=== PATIENT | male | born 1955 | race Caucasian/White ===

== ENCOUNTER 2021-07-10 23:59 | Emergency (ER) | payer MEDICARE ==
[~2021-07-10] VITALS: Ht 177.8 cm; Wt 96.0 kg
--- NOTE | 2021-07-11 00:46 | RAD ---
Examination: CT head and cervical spine without contrast CT HEAD INDICATION: Fall, pain COMPARISON: None Available. Exposure: One or more of the following individualized dose reduction techniques were utilized for thi s examination: 1. Automated exposure control 2. Adjustment of the mA and/or kV according to patient size 3. Use of iterative reconstruction technique TECHNIQUE: 5 mm contiguous axial images were obtained from the skull base to the vertex in both bone and soft tissue algorithm. FINDINGS: No abnormal attenuation within the brain parenchyma. No evidence of acute intracranial hemorrhage. No extra-axial fluid collections. No mass effect or midline shift. Ventricular size is appropriate. Basal cisterns are patent. No fractures identified.Eckert-white differentiation is preserved.Globes and orbits are within normal l imits. Paranasal sinuses and mastoid air cells are clear. CT CERVICAL SPINE INDICATION: Fall, pain COMPARISON: None Available. Technique: 2.5 mm contiguous axial images were obtained from the skull base through the cervicothorac ic junction in both bone and soft tissue algorithm. Additional sagittal and coronal reconstructions were also performed. FINDINGS: Vertebral body height and alignment are maintained. Cervical lordosis is preserved. The l ateral masses of C1 are aligned upon C2. No fractures identified. The bony canal is patent throughout. Moderate intervertebral disc height loss identified in the cervical spine particularly at C4-C5, C5-C 6, C6-C7 with small anterior and posterior osteophyte formation. The paraspinous soft tissues are unremarkable. Visualized intracranial contents are unremarkable. L phil apices are clear. IMPRESSION: 1. No acute intracranial findings. 2. No acute fracture cervical spine. Correlate clinically. 3. Moderate degenerative changes cervical spine. Electronically signed by: Piero Colon MD (07/11/2021 12:44 AM) [id number]
[2021-07-11 00:57] LABS: BASO % 0 % (0-3); EOS % 0 % (0-3); HEMATOCRIT 34.9 % (39.0-53.0); HEMOGLOBIN 11.6 g/dL (13.0-17.5); LYMPH # 0.6 x10^3/uL (1.0-4.8); LYMPH % 12 % (24-48); MEAN CORPUSCULAR HEMOGLOBIN 29 pg (25-35); MEAN CORPUSCULAR HGB CONC 33 g/dL (31-37); MEAN CORPUSCULAR VOLUME 87 fL (79-100); MONO # 0.3 x10^3/uL (0.0-1.1); MONO % 6 % (0-9); NEUT # 4.3 x10^3/uL (1.8-7.7); NEUT % 82 % (31-73); PLATELET COUNT 141 x10^3/uL (140-400); RED BLOOD COUNT 4.03 x10^6/uL (4.30-5.70); RED CELL DISTRIBUTION WIDTH 14.8 % (11.5-14.5); WHITE BLOOD COUNT 5.2 x10^3/uL (4.0-11.0)
[2021-07-11] MEDS ORDERED: KETAMINE HCL 500 MG/10 ML VIAL. IV ONE (01:00)
[2021-07-11] MEDS ORDERED: DIPH,PERTUSS(ACELL),TET VAC/PF 0.5 ML SYRINGE. VAX IM ONE (01:00)
[2021-07-11] MEDS ORDERED: IV NORMAL SALINE 1000ML BAG 1,000 ML IV ONE ×2 (01:00→01:30)
[2021-07-11] MEDS ORDERED: HYDROmorphone 2 MG/ML VIAL IVP ONE (01:00)
[2021-07-11 01:07] LABS: CALCIUM 7.8 mg/dL (8.5-10.1); CREATININE 0.7 mg/dL (0.7-1.3); GFR 112.1; POTASSIUM 4.4 mmol/L (3.5-5.1)
--- NOTE | 2021-07-11 01:11 | RAD ---
Examination: 3 views of the left knee, 2 views of the left tibia and fibula, 3 views of the left ankl e, 2 views of the left foot HISTORY: History of fall, ankle pain COMPARISON: Available FINDINGS: The alignment of the knee joint grossly appears unremarkable. Small knee joint effusion. There is mil d lateral displaced fracture of the lateral malleolus. There is lateral subluxation/dislocation of th e talus in the ankle joint with widening of the medial clear space. Moderate soft tissue swelling stan[place] ntified lateral to lateral malleolus. Mild hallux valgus. The alignment of the tarsal bones, tarsomet atarsal joints, metatarsophalangeal, interphalangeal grossly appears unremarkable. IMPRESSION: Mild lateral displaced fracture of the lateral malleolus with lateral subluxation/dislocation of the talus in the ankle joint with widening of the medial clear space. Moderate soft tissue swelling later al to lateral malleolus. Electronically signed by: Piero Colon MD (07/11/2021 1:09 AM) [id number]
[2021-07-11 01:13] LABS: ALBUMIN 3.6 g/dL (3.4-5.0); ALBUMIN/GLOBULIN RATIO 1.3 (1.0-1.7); TOTAL BILIRUBIN 0.3 mg/dL (0.2-1.0); TOTAL PROTEIN 6.4 g/dL (6.4-8.2)
--- NOTE | 2021-07-11 01:39 | PHYS DOC ---
Past Medical History Past Surgical History: No Surgical History General Adult EDM: Chief Complaint: ANKLE PROBLEM HPI: HPI: 66-year-old male who initially denies any past medical history, resents the ED with complaints of left ankle pain stating he rolled his ankle just prior to arrival. is later present at bedside, (patient consents to his/her/their knowledge and involvement in pts' medical care), and states she heard a loud noise and found patient on the floor. Patient reports he did not hit his head or lose consciousness. States "I tried to walk on it and couldn't." Has a history of bilateral hip placements, gastric bypass surgery in 2003 and reports he has sweating and dizzy spells, worse at night for the past 4 years. Does drink alcohol daily, 1 bottle of wine a day. Reports he was currently drinking alcohol earlier tonight. No prior injury to his left ankle. Denies any head injury or loss of consciousness. Is not on any anticoagulants. Takes no routine daily prescribed medications. Denies any other coingestants. Cannot recall last tetanus. Review of Systems: Review of Systems: Constitutional: Denies fever or chills. [] Eyes: Denies change in visual acuity. [] HENT: Denies nasal congestion or sore throat. [] Respiratory: Denies cough or shortness of breath. [] Cardiovascular: Denies chest pain or edema. [] GI: Denies abdominal pain, nausea, vomiting, bloody stools or diarrhea. [] : Denies incontinence or saddle anesthesia Musculoskeletal: Denies mildline back pain or flank pain. [] Integument: Denies rash or diaphoresis Neurologic: Denies headache, focal weakness or sensory changes. [] Endocrine: Denies polyuria or polydipsia. [] Lymphatic: Denies swollen glands. [] Psychiatric: Denies depression or anxiety. [] Heart Score: C/O Chest Pain: No Risk Factors: Risk Factors: DM, Current or recent (<one month) smoker, HTN, HLP, family history of CAD, obesity. Risk Scores: Score 0 - 3: 2.5% MACE over next 6 weeks - Discharge Home Score 4 - 6: 20.3% MACE over next 6 weeks - Admit for Clinical Observation Score 7 - 10: 72.7% MACE over next 6 weeks - Early Invasive Strategies Current Medications: Current Medications Medications (Trade) Dose Ordered Sig/Obdulia Start Time Stop Time Status Last Admin Dose Admin Diphtheria/ Tetanus/Acell Pertussis (ADACEL TDap SYRINGE) 0.5 ml ONCE ONCE 07/11/21 01:00 07/11/21 01:01 DC 07/11/21 00:54 0.5 ML Hydromorphone HCl (Dilaudid) 1 mg 1X ONCE 07/11/21 01:00 07/11/21 01:01 DC 07/11/21 00:52 1 MG Ketamine HCl (Ketamine) 120 mg 1X ONCE 07/11/21 01:00 07/11/21 01:01 DC 07/11/21 00:54 120 MG Sodium Chloride 1,000 ml @ 1,000 mls/hr 1X ONCE 07/11/21 01:30 07/11/21 02:29 07/11/21 01:26 1,000 MLS/HR Allergies: Allergies: Allergies Coded Allergies Type Severity Reaction Last Updated Verified No Known Drug Allergies 07/11/21 No Physical Exam: PE: Constitutional: Well developed, well nourished, no acute distress, non-toxic appearance. HENT: Normocephalic, atraumatic, moist mucous membranes Eyes: PERRLA, EOMI, conjunctiva normal, no discharge. Neck: Normal range of motion, supple, no midline neck pain Cardiovascular: S1/2 present, regular rhythm Lungs & Thorax: Speaking in full sentences, bilateral equal chest rise, no tachypnea or increased work of breathing Abdomen: soft, no tenderness, Skin: Warm, dry, no erythema, no rash. [] Back: No midline spinal step-offs or tenderness, no CVA tenderness. [] Extremities: Complains of left ankle pain with weightbearing, no pain in either knee or fibular head but both anterior knees have superficial abrasions, left ankle with obvious deformity/significant contusions over medial malleoli w/skin tenting and superficial skin abrasion, dp/pt intact bl, L5/S1 intact bl, cap refill < 1 second, patient moves left ankle/knee hip without any grimace Neurologic: Alert and oriented X 3, normal motor function, normal sensory function, no focal deficits noted, ataxic movements Psychologic: Affect normal, judgement normal, mood normal. [] Current Patient Data: Labs: Laboratory Tests Test 07/11/21 00:40 White Blood Count 5.2 x10^3/uL (4.0-11.0) Red Blood Count 4.03 x10^6/uL (4.30-5.70) L Hemoglobin 11.6 g/dL (13.0-17.5) L Hematocrit 34.9 % (39.0-53.0) L Mean Corpuscular Volume 87 fL (79-100) Mean Corpuscular Hemoglobin 29 pg (25-35) Mean Corpuscular Hemoglobin Concent 33 g/dL (31-37) Red Cell Distribution Width 14.8 % (11.5-14.5) H Platelet Count 141 x10^3/uL (140-400) Neutrophils (%) (Auto) 82 % (31-73) H Lymphocytes (%) (Auto) 12 % (24-48) L Monocytes (%) (Auto) 6 % (0-9) Eosinophils (%) (Auto) 0 % (0-3) Basophils (%) (Auto) 0 % (0-3) Neutrophils # (Auto) 4.3 x10^3/uL (1.8-7.7) Lymphocytes # (Auto) 0.6 x10^3/uL (1.0-4.8) L Monocytes # (Auto) 0.3 x10^3/uL (0.0-1.1) Eosinophils # (Auto) 0.0 x10^3/uL (0.0-0.7) Basophils # (Auto) 0.0 x10^3/uL (0.0-0.2) Sodium Level 136 mmol/L (136-145) Potassium Level 4.4 mmol/L (3.5-5.1) Chloride Level 100 mmol/L (98-107) Carbon Dioxide Level 24 mmol/L (21-32) Anion Gap 12 (6-14) Blood Urea Nitrogen 9 mg/dL (8-26) Creatinine 0.7 mg/dL (0.7-1.3) Estimated GFR (Cockcroft-Gault) 112.1 BUN/Creatinine Ratio 13 (6-20) Glucose Level 105 mg/dL (70-99) H Calcium Level 7.8 mg/dL (8.5-10.1) L Total Bilirubin 0.3 mg/dL (0.2-1.0) Aspartate Amino Transferase (AST) 28 U/L (15-37) Alanine Aminotransferase (ALT) 31 U/L (16-63) Alkaline Phosphatase 41 U/L (46-116) L Total Protein 6.4 g/dL (6.4-8.2) Albumin 3.6 g/dL (3.4-5.0) Albumin/Globulin Ratio 1.3 (1.0-1.7) Ethyl Alcohol Level 241 mg/dL (0-10) H Laboratory Tests 07/11/21 00:40 Laboratory Tests 07/11/21 00:40 Vital Signs: Vital Signs Date Time Temp Pulse Resp B/P (MAP) Pulse Ox O2 Delivery O2 Flow Rate FiO2 07/11/21 00:52 18 98 07/11/21 00:15 98.3 98 122/61 (81) Room Air 98.3 EKG: EKG: Sinus rhythm 59 bpm, left axis deviation, first-degree AV block with OH interval 202, QTc 46, T wave inversion lead III and aVF, no ST elevation or ST depres corona, patient does not have any chest pain Radiology/Procedures: Radiology/Procedures: IMAGING REPORT Signed PATIENT: VISHAL HARTMANNCCOUNT: [id number] : 1955 LOCATION: ER AGE: 66 SEX: M EXAM STATUS: REG ER ORD. PHYSICIAN: ELIUD CAUSEY DO REASON: ankle pain PROCEDURE: CT HEAD AND CERVICAL SPINE WO Examination: CT head and cervical spine without contrast CT HEAD INDICATION: Fall, pain COMPARISON: None Available. Exposure: One or more of the following individualized dose reduction techniques were utilized for this examination: 1. Automated exposure control 2. Adjustment of the mA and/or kV according to patient size 3. Use of iterative reconstruction technique TECHNIQUE: 5 mm contiguous axial images were obtained from the skull base to the vertex in both bone and soft tissue algorithm. FINDINGS: No abnormal attenuation within the brain parenchyma. No evidence of acute intracranial hemorrhage. No extra-axial fluid collections. No mass effect or midline shift. Ventricular size is appropriate. Basal cist erns are patent. No fractures identified.Eckert-white differentiation is preserved.Globes and orbits are within normal limits. Paranasal sinuses and mastoid air cells are clear. CT CERVICAL SPINE INDICATION: Fall, pain COMPARISON: None Available. Technique: 2.5 mm contiguous axial images were obtained from the skull base through the cervicothoracic junction in both bone and soft tissue algorithm. Additional sagittal and coronal reconstructions were also performed. FINDINGS: Vertebral body height and alignment are maintained. Cervical lordosis is preserved. The lateral masses of C1 are aligned upon C2. No fractures identified. The bony canal is patent throughout. Moderate intervertebral disc height loss identified in the cervical spine particularly at C4-C5, C5-C6, C6-C7 with small anterior and posterior osteophyte formation. The paraspinous soft tissues are unremarkable. Visualized intracranial contents are unremarkable. Lung apices are clear. IMPRESSION: 1. No acute intracranial findings. 2. No acute fracture cervical spine. Correlate clinically. 3. Moderate degenerative changes cervical spine. Electronically signed by: Piero Colon MD (07/11/2021 12:44 AM) [id number] DICTATED and SIGNED BY: PIERO COLON MD DATE: 07/11/21 [id number] 0 IMAGING REPORT Signed PATIENT: VISHAL HARTMANNCCOUNT: [id number] : 1955 LOCATION: ER AGE: 66 SEX: M EXAM STATUS: REG ER ORD. PHYSICIAN: ELIUD CAUSEY DO REASON: ankle pain PROCEDURE: FOOT LEFT 2V Examination: 3 views of the left knee, 2 views of the left tibia and fibula, 3 views of the left ankle, 2 views of the left foot HISTORY: History of fall, ankle pain COMPARISON: Available FINDINGS: The alignment of the knee joint grossly appears unremarkable. Small knee joint effusion. There is mild lateral displaced fracture of the lateral malleolus. There is lateral subluxation/dislocation of the talus in the ankle joint with widening of the medial clear space. Moderate soft tissue swelling identified lateral to lateral malleolus. Mild hallux valgus. The alignment of the tarsal bones, tarsometatarsal joints, metatarsophalangeal, interphalangeal grossly appears unremarkable. IMPRESSION: Mild lateral displaced fracture of the lateral malleolus with lateral subluxation/dislocation of the talus in the ankle joint with widening of the medial clear space. Moderate soft tissue swelling lateral to lateral malleolus. Electronically signed by: Piero Colon MD (07/11/2021 1:09 AM) [id number] DICTATED and SIGNED BY: PIERO COLON MD DATE: 07/11/[id number] 0 IMAGING REPORT Signed PATIENT: JAGUAR HARTMANN: [id number] : 1955 LOCATION: ER AGE: 66 SEX: M EXAM STATUS: REG ER ORD. PHYSICIAN: ELIUD CAUSEY DO REASON: POST REDUCTION #1 PROCEDURE: ANKLE LEFT 3V Examination: 3 views of the left ankle HISTORY: History of postreduction COMPARISON: Same day exam Findings/ impression: Mild lateral displaced fracture of the lateral malleolus again identified. There is persistent lateral subluxation of the talus in the ankle joint which is slightly improved since prior exam. Electronically signed by: Piero Colon MD (07/11/2021 2:34 AM) [id number] DICTATED and SIGNED BY: PIERO COLON MD DATE: 07/11/[id number] 0 IMAGING REPORT Signed PATIENT: JAGUAR HARTMANN: [id number] : 1955 LOCATION: ER AGE: 66 SEX: M EXAM STATUS: REG ER ORD. PHYSICIAN: ELIUD CAUSEY DO REASON: FALL PROCEDURE: KNEE RIGHT 3V Examination: 3 views of the right knee HISTORY: History of fall COMPARISON: None available. Findings: The alignment of the knee joint grossly appears unremarkable. Mild joint space loss identified in the medial, lateral, patellofemoral compartments. IMPRESSION: 1. Mild tricompartmental degenerative changes. Electronically signed by: Piero Colon MD (07/11/2021 2:37 AM) [id number] DICTATED and SIGNED BY: PIERO COLON MD DATE: 07/11/[id number] 0 IMAGING REPORT Signed PATIENT: JAGUAR HARTMANN: [id number] : 1955 LOCATION: ER AGE: 66 SEX: M EXAM STATUS: REG ER ORD. PHYSICIAN: ELIUD CAUSEY DO REASON: intox fall, r/o trauma, htyoptensiove PROCEDURE: CT CHEST ABD PELVIS W/CONTRAST Examination: CT chest abdomen pelvis with IV contrast, CT thoracic and lumbar spine without contrast Indication: Reason: fall intox / Spl. Instructions: / History: Technique: Contiguous axial images were obtained through the chest, abdomen, and pelvis after administration IV contrast. Coronal and sagittal reformations were created. Axial CT images of the thoracic and lumbar spine was performed without contrast and coronal sagittal reformats are performed. Comparison: None Findings: The visualized thyroid gland grossly appears unremarkable. Central airways are patent. Mild cardiomegaly. The ascending aorta measures 5 cm in transverse dimension. Neurologically significant mediastinal lymphadenopathy identified. Mild bibasilar lung atelectasis. Mild decreased attenuation noted in the liver likely hepatic steatosis. The spleen, adrenals grossly appears unremarkable. The gallbladder is mildly distended. Surgical changes identified in the stomach. The small bowel is nondilated. Feces and gas noted in the colon.. Urinary bladder is mildly distended The bilateral kidneys enhance symmetrically. Minimal compression changes identified in the mid thoracic vertebral bodies T7, T8, T9 vertebral bodies likely chronic changes. Moderate intervertebral disc height loss identified in the thoracic and lumbar spine likely degenerative changes. Mild thoracic kyphosis. Bilateral total hip arthroplasty changes. IMPRESSION: 1. No acute traumatic findings identified in the chest, abdomen or pelvis. 2. Mild aneurysmal change ascending aorta. 3. Hepatic steatosis. 4. Minimal compression changes identified in the mid thoracic vertebral bodies T7, T8, T9 vertebral bodies likely chronic changes. Electronically signed by: Piero Colon MD (07/11/2021 4:52 AM) [email or web address] DICTATED and SIGNED BY: PIERO COLON MD DATE: 07/11/21 [id number] 0 Indication: Joint dislocation Consent: Consent was obtained. Procedure: The pre-reduction exam showed distal perfusion and neurologic function to be normal.. The patient was placed in the appropriate position. Anesthesia/pain control with dilaudid (was heavily intoxicated and tolerated reduction without any procedural sedation). Reduction of the of the left lateral ankle was performed by distraction and medial movement of talus. Post reduction films were obtained and revealed slight improvement of subluxed talus. A post- reduction exam revealed distal perfusion and neurologic function to be normal. The affected area was immobilized with a posterior ankle splint and stirrup splint. Crutches provided The patient tolerated the procedure well. Complications: none. Patient and informed of findings. Splint applied by medic and myself. The splint is checked by myself, with appropriate stabilization of the injury. Distal capillary refill normal and distal neurologic function intact. Pt later c/o his foot "falling asleep" and splint was re-wrapped with resolution of symptoms. Course & Med Decision Making: Course & Med Decision Making Pertinent Labs and Imaging studies reviewed. (See chart for details) Concern for closed left lateral malleoli fracture with significant ankle contusions and talar subluxation-unable to improve this after multiple attempts- patient continues to move left ankle with no significant pain. Patient became hypotensive after 1 mg of Dilaudid and a fluid bolus was started. Hours later patient became more hypotensive and a 2000 cc bolus was administered. Pt was re-scanned to assess for trauma. Pt continued to have no back or abdominal pain, was neurovascularly intact with no severe pain of left lower extremity. Ct images not concerning for any new trauma or hemorrhage. Patient's blood pressure improved, could be vasovagal near syncope versus alcohol related. Pt provided with crutches and analgesic instructions. Will discharge home with strict ED return precautions were given for severe pain, repeat injury, neurologic deficits, confusion or altered mental status. Encouraged urgent outpatient follow-up with PMD and orthopedic surgery within 1 week. Life- threatening processes were considered but are low suspicion at this time, given history, physical exam and ED workup. Pt was educated on all prescription medications and adverse effects. All patient's questions were answered and pt was stable at time of discharge. Life/limb-threatening differential includes but is not limited to, intracranial hemorrhage, diffuse axonal injury, spinal cord syndrome, unstable cervical fracture or SCIWORA, fractures or joint dislocations, neurovascular injuries, organ injury or laceration, pneumothorax, pneumoperitoneum, pericardial tamponade, unstable pelvic fracture, compartment syndrome, flail chest or respiratory distress, burn injury or asphyxiation I have spoken with the patient and/or caregivers. I explained the patient's condition, diagnoses and treatment plan based on the information available to me at this time. I have answered the patient and/or caregiver's questions and addressed any concerns. The patient and/or caregivers have a good understanding of patient's diagnosis, condition and treatment plan as can be expected at this point. Vital signs have been stable. Patient's condition is stable and appropriate for discharge from the emergency department. Patient will pursue further outpatient evaluation with primary care physician or other designated or consulting physician as outlined in the discharge instructions. The patient and/or caregivers are agreeable to this plan of care and follow-up instructions have been explained in detail. The patient and/or caregivers have received these instructions in written form and have expressed an understanding of the discharge instructions. The patient and/or caregivers are aware that any significant change of condition or worsening of symptoms should prompt immediate return to this or the closest emergency department or call to 911. Awilda Disclaimer: Awilda Disclaimer: This electronic medical record was generated, in whole or in part, using a voice recognition dictation system. Departure Departure Impression: Primary Impression: Alcohol intoxication Additional Impressions: Need for Tdap vaccination Fracture of lateral malleolus of left ankle Subluxation of left ankle joint Disposition: HOME / SELF CARE / HOMELESS Condition: STABLE Referrals: EV CORNELL (PCP) Follow-up with your primary care physician for routine care OR FOLLOW UP WITH FAMILY MEDICINE: [address] [facility] [place] [address] Patient Instructions: Alcohol Intoxication, Ankle Dislocation, Displaced Fibular Fracture (Adult, Ankle) Treated with ORIF, VIS, Tetanus, Diphtheria (Td); Tetanus, Diphtheria, Pertussis (Tdap) - CDC Additional Instructions: FOLLOW UP WITH ORTHOPEDICS: FOR DEFINITIVE MANAGEMENT of ankle fracture within 1 week Orthopaedic Surgery [address] [place], [address] [place] [address] EMERGENCY DEPARTMENT GENERAL DISCHARGE INSTRUCTIONS Thank you for coming to [facility] Emergency Department (ED) today and trusting us with you care. We trust that you had a positive experience in our Emergency Department. If you wish to speak to the department management, you may call the Director at [phone]. YOUR FOLLOW UP INSTRUCTIONS ARE FOLLOWS: 1. Do you have a private Doctor? If you do not have a private doctor, please ask for a resource list of physicians or clinics that may be able to assist you with follow up care. 2. The Emergency Physicain has interpreted your x-rays. The X-Ray specialist will also review them. If there is a change in the findings, you will be notified in 48 hours when at all possible. 3. A lab test or culture has been done, your results will be reviewed and you will be notified if you need a change in treatment. ADDITIONAL INSTRUCTIONS AND INFORMATION: 1. Your care today has been supervised by a physician who is specially trained in emergency care. Many problems require more than one evaluation for a complete diagnosis and treatment. We recommend that you schedule your follow up appointment as recommended to ensure complete treatment of you illness or injury. If you are unable to obtain follow up care and continue to have a problem, or if your condition worsens, we recommend that you return to the ED. 2. We are not able to safely determine your condition over the phone nor are we able to give sound medical advice over the phone. For these safety reasons, if you call for medical advice we will ask you to come to the ED for further evaluation. 3. If you have any questions regarding these discharge instructions please call the ED at [phone]. SAFETY INFORMATION: In the interest of safety, wellness, and injury prevention; we encourage you to wear your sealbelt, if you smoke; quite smoking, and we encourage family to use a protective helmet for bicycling and other sporting events that present an increased risk for head injury. IF YOUR SYMPTOMS WORSEN OR NEW SYMPTOMS DEVELOP, OR YOU HAVE CONCERNS ABOUT YOUR CONDITION; OR IF YOUR CONDITION WORSENS WHILE YOU ARE WAITING FOR YOUR FOLLOW UP APPOINTMENT; EITHER CONTACT YOUR PRIMARY CARE DOCTOR, THE PHYSICIAN WHOSE NAME AND NUMBER YOU WERE GIVEN, OR RETURN TO THE ED IMMEDIATELY. Scripts Hydrocodone Bit/Acetaminophen (HYDROCODONE-APAP 5-325 ) 1 Tab Tablet 1 TAB PO PRN Q6HRS PRN for PAIN for 4 Days, #16 TAB 0 Refills Prov: ELIUD CAUSEY DO 07/11/21 ELIUD CAUSEY DO Jul 11, 2021 01:39
--- NOTE | 2021-07-11 02:36 | RAD ---
Examination: 3 views of the left ankle HISTORY: History of postreduction COMPARISON: Same day exam Findings/ impression: Mild lateral displaced fracture of the lateral malleolus again identified. There is persistent later al subluxation of the talus in the ankle joint which is slightly improved since prior exam. Electronically signed by: Piero Colon MD (07/11/2021 2:34 AM) [id number]
--- NOTE | 2021-07-11 02:39 | RAD ---
Examination: 3 views of the right knee HISTORY: History of fall COMPARISON: None available. Findings: The alignment of the knee joint grossly appears unremarkable. Mild joint space loss identif ied in the medial, lateral, patellofemoral compartments. IMPRESSION: 1. Mild tricompartmental degenerative changes. Electronically signed by: Piero Colon MD (07/11/2021 2:37 AM) [id number]
[2021-07-11] MEDS ORDERED: HYDR-2761 PO (03:21)
[2021-07-11] MEDS ORDERED: IOHEXOL 300 MG/ML 100ML VIAL. IV ONE (04:00)
[2021-07-11] MEDS ORDERED: CONTRAST GIVEN. MC PRN (04:00)
--- NOTE | 2021-07-11 04:54 | RAD ---
Examination: CT chest abdomen pelvis with IV contrast, CT thoracic and lumbar spine without contrast Indication: Reason: fall intox / Spl. Instructions: / History: Technique: Contiguous axial images were obtained through the chest, abdomen, and pelvis after adminis tration IV contrast. Coronal and sagittal reformations were created. Axial CT images of the thoracic and lumbar spine was performed without contrast and coronal sagittal reformats are performed. Comparison: None Findings: The visualized thyroid gland grossly appears unremarkable. Central airways are patent. Mild cardiomeg kendra. The ascending aorta measures 5 cm in transverse dimension. Neurologically significant mediastina l lymphadenopathy identified. Mild bibasilar lung atelectasis. Mild decreased attenuation noted in th e liver likely hepatic steatosis. The spleen, adrenals grossly appears unremarkable. The gallbladder is mildly distended. Surgical changes identified in the stomach. The small bowel is nondilated. Feces and gas noted in the colon.. Urinary bladder is mildly distended The bilateral kidneys enhance symmetrically. Minimal compression changes identified in the mid thorac ic vertebral bodies T7, T8, T9 vertebral bodies likely chronic changes. Moderate intervertebral disc height loss identified in the thoracic and lumbar spine likely degenerative changes. Mild thoracic ky phosis. Bilateral total hip arthroplasty changes. IMPRESSION: 1. No acute traumatic findings identified in the chest, abdomen or pelvis. 2. Mild aneurysmal change ascending aorta. 3. Hepatic steatosis. 4. Minimal compression changes identified in the mid thoracic vertebral bodies T7, T8, T9 vertebral bodies likely chronic changes. Electronically signed by: Piero Colon MD (07/11/2021 4:52 AM) [id number]
--- NOTE | 2021-07-11 05:05 | EKG ---
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
[2021-07-11 05:10] VITALS: BP 112/59
[2021-07-11] MEDS ORDERED: HYDROcodone/APAP 7.5/325MG 1 TAB TABLET PO ONE (05:30)
--- NOTE | 2021-07-11 07:24 | RAD ---
Two-view left ankle x2 HISTORY: Status post reduction Two-view left ankle 1:32 AM Limited 2 view AP lateral views COMPARISON: 1:27 AM There is an oblique fracture of the lateral malleolus at and above the level plafond and with mild la teral and posterior displacement. There is widening of the medial mortise with lateral subluxation of the talus from the tibia. IMPRESSION: Bimalleolar fracture with widening of the medial mortise. There is slightly improved anatomic relatio nship. 2 view left ankle: 3:11 AM Limited 2 view AP lateral views of the left ankle were obtained There is fracture of the lateral malleolus at and above the level plafond and with lateral displaceme nt and there is significant widening of the medial mortise with lateral subluxation of the talus from the tibia and valgus angulation. IMPRESSION: Bimalleolar fracture dislocation appears mildly worse. Electronically signed by: Jacques Shelby III, MD (07/11/2021 7:22 AM) PATTIE
[2021-07-22] MEDS ORDERED: HYDR-2761 PO (07:46)
== END 2021-07-11 05:40 | disposition home or self-care (01) ==
LOC: ER 23:59
DX: S82.62XA Displaced fracture of lateral malleolus of left fibula, initial encounter for closed fracture (principal); S93.02XA Subluxation of left ankle joint, initial encounter; S82.842A Displaced bimalleolar fracture of left lower leg, initial encounter for closed fracture; S93.05XA Dislocation of left ankle joint, initial encounter; R51.9 Headache, unspecified; M54.2 Cervicalgia; R42 Dizziness and giddiness; Z95.1 Presence of aortocoronary bypass graft; W17.89XA Other fall from one level to another, initial encounter; Y93.89 Activity, other specified; Y92.89 Other specified places as the place of occurrence of the external cause; Y99.8 Other external cause status
CPT/HCPCS: 27788; 36415; 70450; 71260; 72125; 73562; 73590; 73600; 73610; 73620; 74177; 80053; 82962; 84484; 85025; 90471; 90715; 93005; 96361; 96374; 96375; 99285; G0480; J1170; J3490; J7030; Q9967

== ENCOUNTER 2021-07-17 12:14 | Inpatient (IN) | payer MEDICARE ==
[~2021-07-17] VITALS: Ht 177.8 cm; Wt 95.4 kg
[2021-07-17] VITALS (7 sets, daily range): BP systolic 97–123; BP diastolic 60–74
[~2021-07-17 12:14] MED LIST: HYDR-2761 PO; HYDROmorphone 2 MG/ML VIAL IVP PRN; IV RINGERS,LACTATED 1000ML 1,000 ML IV SCH; PROCHLORPERAZINE 10 MG/2 ML VIAL. IVP PRN; fentaNYL PF VIAL 100 MCG/2 ML VIAL IVP PRN
[2021-07-17] MEDS ORDERED: ACET325T9 PO (12:41)
[2021-07-17] MEDS ORDERED: CEPH500T PO (12:41)
[2021-07-17] MEDS ORDERED: SENNOSIDES 8.6 MG TABLET PO PRN (13:15)
[2021-07-17] MEDS ORDERED: DOCUSATE SODIUM 100 MG CAPSULE. PO PRN (13:15)
[2021-07-17] MEDS ORDERED: HYDROcodone/APAP 5/325MG 1 TAB TABLET PO PRN (13:15)
[2021-07-17] MEDS ORDERED: PROCHLORPERAZINE 10 MG/2 ML VIAL. IV PRN (13:15)
[2021-07-17] MEDS ORDERED: ACETAMINOPHEN 325 MG TABLET. PO PRN (13:15)
[2021-07-17] MEDS ORDERED: MORPHINE SULFATE 2 MG/ML INJ. IV PRN (13:15)
[2021-07-17] MEDS ORDERED: ONDANSETRON PF 4 MG/2 ML VIAL. IVP PRN ×2 (13:15→16:30)
[2021-07-17] MEDS ORDERED: DEXTROSE 50% 25 GM / 50ML DISP.SYRIN. IV PRN ×2 (13:15→16:30)
[2021-07-17] MEDS ORDERED: LORazepam 0.5 MG TABLET PO PRN (13:15)
[2021-07-17] MEDS ORDERED: ZOLPIDEM 5 MG TABLET. PO PRN (13:15)
[2021-07-17] MEDS ORDERED: MORPHINE SULFATE 2 MG/ML INJ. IVP PRN ×2 (13:15→17:45)
--- NOTE | 2021-07-17 13:15 | PDOC1 ---
History and Physical Date of Service: DOS: DATE: 07/17/21 TIME: 13:02 Chief Complaint: Chief Complain: Fall with left ankle fracture History of Present Illness: HPI: 66-year-old male with past medical history of gastric bypass and bilateral hip replacements who presents to outpatient surgery for left ankle fracture on 07/10/2021 where patient sustained a fall from standing. Patient was unable to bear weight after the incident. ED evaluation and x-ray showed bimalleolar fracture of the ankle. Patient was then closed reduced and splinted and was placed on nonweightbearing restriction. Pain is currently 8 out of 10 in the outpatient setting around the ankle. He presents today for ORIF with Dr. Chavez. Denies fevers, nausea vomiting, chest pain, abdominal pain, complications with anesthesia, complications with bleeding. Past Medical/Surgical History: PMH/PSH: Gastric bypass in 2003, bilateral hip placements in 2004. Patient is Covid vaccinated Allergies: Allergies: Coded Allergies: No Known Drug Allergies (Unverified , 07/17/21) Family History: Family History: Reviewed with no relevant findings Social History: Social History: Denies alcohol, tobacco or drug abuse Current Medications: Current Medications Current Medications Fentanyl Citrate (Fentanyl 2ml Vial) 25 mcg PRN Q5MIN PRN IVP MILD PAIN 1-3; Start 07/17/21 at 10:45; Stop 07/17/21 at 19:00 Fentanyl Citrate (Fentanyl 2ml Vial) 50 mcg PRN Q5MIN PRN IVP MODERATE PAIN 4- 6; Start 07/17/21 at 10:45; Stop 07/17/21 at 19:00 Morphine Sulfate (Morphine Sulfate) 1 mg PRN Q10MIN PRN IVP SEVERE PAIN 7-10; Start 07/17/21 at 10:45; Stop 07/17/21 at 19:00 Ringer's Solution 1,000 ml @ 30 mls/hr Q24H IV ; Start 07/17/21 at 11:00; Stop 07/17/21 at 19:00 Hydromorphone HCl (Dilaudid) 0.5 mg PRN Q10MIN PRN IVP SEVERE PAIN 7-10, 2nd CHOICE; Start 07/17/21 at 10:45; Stop 07/17/21 at 19:00 Prochlorperazine Edisylate (Compazine) 5 mg PACU PRN PRN IVP NAUSEA, MRX1; Start 07/17/21 at 10:45; Stop 07/17/21 at 19:00 Cefazolin Sodium/ Dextrose 50 ml @ 100 mls/hr 1X PREOP PRN IV PRIOR TO PROCEDURE; Start 07/17/21 at 13:00; Stop 07/18/21 at 12:59 Active Scripts Active Hydrocodone-Apap 5-325 (Hydrocodone Bit/Acetaminophen) 1 Tab Tablet 1 Tab PO PRN Q6HRS PRN 4 Days Reported Cephalexin 500 Mg Tablet 500 Mg PO BID Tylenol (Acetaminophen) 325 Mg Tablet 325 Mg PO PRN PRN ROS: Review of Systems Review of System REVIEW OF SYSTEMS: GENERAL: Denies weakness SKIN: No bruising, hair changes or rashes. EYES: No blurred, double or loss of vision. NOSE AND THROAT: No history of nosebleeds, hoarseness or sore throat. HEART: No history of palpitations, chest pain or shortness of breath on exertion. LUNGS: Denies cough, hemoptysis, wheezing or shortness of breath. GASTROINTESTINAL: Denies changes in appetite, nausea, vomiting, diarrhea or constipation. GENITOURINARY: No history of frequency, urgency, hesitancy or nocturia. NEUROLOGIC: Denies history of numbness, tingling, or tremor. PSYCHIATRIC: No history of panic, anxiety or depression. ENDOCRINE: No history of heat or cold intolerance, polyuria or polydipsia. EXTREMITIES: Positive left ankle pain Physical Exam: Vital Signs: Vital Signs Date Time Temp Pulse Resp B/P (MAP) Pulse Ox O2 Delivery O2 Flow Rate FiO2 07/17/21 12:41 98.5 85 20 139/76 97 Room Air 98.5 Physcial Exam: General: Well developed, well nourished, no acute distress, well appearing HEENT: Pupils equally round and reactive to light, EOMI, no discharge, normal conjunctiva Neck: Supple, no nuchal rigidity, no JVD, trachea midline, no tenderness Cardiac: RRR, no murmurs, no gallops, no rubs Chest/Lungs: CTAB, no wheeze, no rhonchi, no crackles Abdomen: soft, non-distended, no guarding, no peritoneal signs, non-tender Back: No tenderness Extremities: Left closed reduction cast intact. Warm extremities. no edema, pulses intact, non-tender,capillary refill <3 sec bilateral upper and lower extremities, Neuro: Alert and oriented x 4, no focal deficits, normal speech Labs: Labs: Labs from 07/11/2021 reviewed. Unremarkable except for some mild anemia Images: Images PROCEDURE: ANKLE LEFT 3V XR EXAM OF ANKLE_LEFT 3V Clinical indications: Reason: F/U LT ANKLE FX / Spl. Instructions: / History: COMPARISON: July 04, 2021. Findings/ impression: Again seen is an oblique fracture of the distal left fibular metadiaphysis with lateral and posterior displacement of the distal fracture segment with respect to the fibular shaft. No healing reaction is seen. There is widening of the medial aspect of the mortise ankle joint consistent with disruption of the deltoid ligament. There is mild lateral subluxation of the talus within the mortise ankle joint as a result. No lytic process is seen. Assessment/Plan Assessment/Plan Acute left trimalleolar fracture pending ORIF, Neri score of less than 0.2% Obesity class I History of gastric bypass Admit to hospitalist service after surgery with Dr. Scott VILLAGOMEZ n.p.o. pain control PT OT after surgery Will defer to podiatry for DVT prophylaxis N.p.o. CODE STATUS full Discussed with RN and SW Disposition on-call to the OR DPOA: Justifications for Admission Other Justification KVNG STEPHEN MD Jul 17, 2021 13:14
[2021-07-17] MEDS ORDERED: PROPOFOL 10 MG/ML (20ML) VIAL. IV ONE ×3 (13:36→15:12)
[2021-07-17] MEDS ORDERED: LIDOCAINE 2% PF 5 ML VIAL. ONE (13:37)
[2021-07-17] MEDS ORDERED: ROCURONIUM 50 MG/5 ML VIAL. ONE (13:38)
[2021-07-17] MEDS ORDERED: DEXAMETHASONE SOD PHOS 4 MG/ML VIAL ONE (13:39)
[2021-07-17] MEDS ORDERED: fentaNYL PF VIAL 250 MCG/5 ML VIAL ONE (13:47)
[2021-07-17] MEDS ORDERED: VANCOMYCIN 1 GM VIAL. ONE (14:18)
[2021-07-17] MEDS ORDERED: SEVOFLURANE > 120 MINUTES. IH ONE (15:12)
[2021-07-17] MEDS ORDERED: ceFAZolin SODIUM IV Push 1 GM VIAL. IVP ONE ×2 (15:36→15:37)
[2021-07-17] MEDS ORDERED: NEOSTIGMINE METHYLSULFATE 5 MG/5 ML SYRINGE. ONE (15:39)
[2021-07-17] MEDS ORDERED: GLYCOPYRROLATE 1 MG/5 ML VIAL. ONE ×2 (15:40)
[2021-07-17] MEDS ORDERED: BUPIVACAINE MPF 0.25% 30 ML VIAL. ONE (15:45)
[2021-07-17] MEDS ORDERED: POLYETHYLENE GLYCOL 3350 17 GM PACKET. PO PRN (16:30)
--- NOTE | 2021-07-17 16:36 | PDOC4 ---
OPERATIVE NOTE Date: Date: Jul 17, 2021 Pre-Op Diagnosis: trimalleolar fracture of the left ankle complicated with fracture blisters, unstable fracture fragment, multiple close reduction and mechanical falls while immobilized in a modified Ac compression dressing Post-Op Diagnosis: Same as above Procedure Performed: Left ankle open reduction internal fixation with syndesmotic joint stabilization Surgeon: Abigail Christianson DPM Anesthesia Type: General Blood Loss: 20 cc Specimans Obtained: None Findings: Oblique distal fibula fracture extending from the joint level posteriorly. Significant diastasis at the medial gutter space and also widening at the sy ndesmotic joint. Small extra-articular posterior tibial malleolus fracture. Complications: None Operative Note: Under mild sedation, patient was brought to the operating room and placed on the operating table in a supine position. A time out was performed, to confirm patient's identity, location of surgery, and procedure. After induction of general anesthesia and intravenous antibiotics, a well-padded pneumatic thigh tourniquet was placed onto left lower extremity. The left lower extremity was scrubbed, prepped and draped in the usual sterile manner. Under intraoperative x-ray guidance, the distal medial and lateral malleoli, the fracture apices, center axial fibula were identified and marked for preoperative incision and surgical planning. An Esmarch bandage was utilized to exsanguinate the lower leg, and the tourniquet was inflated to 250 mmHg. Clinically, there was moderate amount of ecchymosis to the anterior, medial ankle and minimally to the lateral fibula. The serous fracture blisters were all deflated without any sanguinous blisters. There was no opening, drainage or fluctuance to the skin envelope. Attention was directed to the distal fibula fracture site where a closed reduction was attempted with a percutaneous sharp reduction clamp. Reduction was inadequate. Then the decision was made to mini open the fracture site to allow adequate fracture reduction well preserving the skin envelope.oblique fibula fracture site where a 3 mm linear incision was made over the lateral fibular overlying the fracture site. The incision was carried deep with a combination of sharp and blunt dissection with care to protect and retract all neurovascular bundles. At this time, an oblique fibula fracture was visualized. The fracture site was irrigated with copious saline solution. The hematoma was evacuated with a rongeur. All the invaginated periosteum was freed from the fracture site. Under direct visualization, the fracture was reduced with 2 lobster clamps. Intraoperative x-ray remarked adequate fibular length adventism and posterior spike reduction. Then a 1 cm linear incision was made to the distal tip of the fibula. Using a combination of sharp and blunt dissection, the incision was carried deep to the periosteal layer to the distal fibular fossa. Under intraoperative x-ray guidance, a 1.6 mm guidewire was introdiced proximally within the intramedullary canal of the fibula passing the fracture site. The position of the guidewire was confirmed both on lateral and AP of the ankle x-ray. A 6.2 mm tapered reamer over the guidewire was used through the tissue protector for the distal reaming. The flutes were buried at least 3 mm within the distal fibula. Fracture site remained stable and well reduced. Then a 3.2 mm reamer was isolated proximally over the guidewire through the tissue protector until the depth indicator collar was well within the distal fibula. Adequate chatter was noted proximally. And fracture reduction was maintained confirmed on x-ray. The guidewire was removed and fibula lock and outer jig were introduced proximally to the satisfactory depth where a 1.6 mm K wire was introduced from lateral to medial through the outer jig "end hole" and confirmed the distal portion of the nail was flush and well countersunk in the fibula. The 1.6 mm K wire was advanced into the distal tibia as one point of fixation. The syndesmotic screw holes were also noted within satisfactory position. Then, a 1.6 mm K wire was advanced through the provisional syndesmotic screw hole towards the medial cortex of the tibia which noted adequate and satisfactory syndesmotic hardware trajectory. Then, the talons were activated proximally to purchase the inner fibular cortex. At the "static position", one 4.0 millimeter screws was placed, via standard AO technique, to the distal fibula lock to secure the distal portion of the fracture. Adequate and satisfactory screw position and length were noted on the intraoperative x-ray. at this time, the medial gutter was slightly widened but reducible with manual syndesmotic joint stabilization. then two 3.5mm fully threaded cortical screws were placed through the syndesmotic holes in the fibulock traversing quadracortices to the medial malleolus with ankle dorsiflexed to neural. then mortise was noted restored with a normal dime sign laterally. dynamic stress test was stable for syndesmotic joint. There was a small Volkman fx, extra- articular< 25% was stable. Final surveillance x-ray remarked adequate hardware position, alignment. Restored ankle mortise alignment. The sinus was irrigated with copious saline solution. The wound bed was also treated with vancomycin powder, less than 0.25 g. The sites were closed in layers with 3-0 Vicryl, 4 Monocryl and kemi. The surgical sites and serous blister sites were dressed with Xeroform. The left lower extremity was well-padded with 4 x 4 gauze, ABD, soft rolls. Left lower extremity was immobilized in a well-padded modified Ac compression dressing with ankle held in near 90 degrees. Tourniquet was deflated and adequate digital perfusion was noted. Patient tolerated the procedure and anesthesia well. He was transferred to PACU for continuous recovery with vital signs stable and neurovascular status intact. He will receive 24-hour IV antibiotics in the setting of severe compromised skin envelope. Pending 3 view of the left ankle x-ray in PACU. Patient is working with PT for 2 days as an inpatient and possible SNF placement afterwards. ABIGAIL CHRISTIANSON DPM Jul 17, 2021 16:35
[2021-07-17] MEDS ORDERED: MORPHINE SULFATE 2 MG/ML INJ. ONE (16:40)
[2021-07-17] MEDS: MORPHINE SULFATE 2 MG/ML INJ. IVP PRN ×2 (16:47→16:57)
[2021-07-17] MEDS ORDERED: ROPIVacaine 0.5% PF 20 ML VIAL. ONE (16:52)
--- NOTE | 2021-07-17 17:08 | RAD ---
XR EXAM OF ANKLE_LEFT 3V History: Postoperative. Comparison: 07/17/2021, 07/16/2021 Technique: 3 portable views the left ankle and splint FINDINGS/ IMPRESSION: Splint material limits visualization of detail. There has been intramedullary nail fixation of distal fibular fracture with 2 syndesmotic repair screws. Alignment appears anatomic. The talar dome is int act. Diffuse soft tissue swelling. Skin kemi at the lateral ankle. Electronically signed by: Yosi Ivory MD (07/17/2021 5:06 PM) [id number]
[2021-07-17] MEDS: fentaNYL PF VIAL 100 MCG/2 ML VIAL IVP PRN ×2 (17:43→17:58)
[2021-07-17] MEDS ORDERED: fentaNYL PF VIAL 100 MCG/2 ML VIAL IVP PRN (17:45)
[2021-07-17] MEDS ORDERED: HYDROmorphone 2 MG/ML VIAL IVP PRN (17:45)
[2021-07-17] MEDS ORDERED: PROCHLORPERAZINE 10 MG/2 ML VIAL. IVP PRN (17:45)
--- NOTE | 2021-07-17 19:48 | NUR ---
PT ARRIVED TO THE FLOOR AT 1845 Addendum: 07/17/21 at 1949 by VIRGIL LOMBARDI RN Amended: Links added.
[2021-07-17] MEDS: ACETAMINOPHEN 325 MG TABLET. PO SCH (21:36)
[2021-07-17] MEDS: CHOLECALCIFEROL (VITAMIN D3) 5,000 UNIT CAPSULE PO SCH (21:36)
[2021-07-17] MEDS: GABAPENTIN 100 MG CAPSULE. PO SCH (21:36)
[2021-07-18] MEDS: HYDROcodone/APAP 5/325MG 1 TAB TABLET PO PRN ×3 (03:17→23:22)
[2021-07-18 03:18] VITALS: BP 126/71
[2021-07-18 06:06] VITALS: BP 117/68
[2021-07-18] MEDS: oxyCODONE/APAP 5/325 1 TAB TABLET PO PRN ×4 (06:10→15:57)
--- NOTE | 2021-07-18 08:54 | PDOC ---
[facility] PROGRESS NOTE Date of Service DOS: DATE: 07/18/21 TIME: 08:52 Chief Complaint Chief Complaint Postop day one ORIF left ankle fracture Gastric bypass in 2003, bilateral hip placements in 2004. Patient is Covid vaccinated History of Present Illness History of Present Illness 07/18/2021 Patient seen and examined Discussed with RN Chart reviewed His left leg is in a cast He had some coccygeal pain going for an x-ray today Vitals/I&O Vitals/I&O: Vital Signs Date Time Temp Pulse Resp B/P (MAP) Pulse Ox O2 Delivery O2 Flow Rate FiO2 07/18/21 06:40 Room Air 07/18/21 06:10 18 95 07/18/21 06:06 98.2 77 117/68 (84) 98.2 07/17/21 19:00 10.0 I & O 07/17/21 07/17/21 07/18/21 15:00 23:00 07:00 Intake Total 1720 ml 400 ml Output Total 1150 ml 1000 ml Balance 570 ml -600 ml Physical Exam General: No acute distress Heart: Regular rate Lungs: Clear Abdomen: Normal bowel sounds Extremities: Other (Left leg in cast) Skin: No rashes Assessment and Plan Assessmemt and Plan Postop day one ORIF left ankle fracture Gastric bypass in 2003, bilateral hip placements in 2004. Patient is Covid vaccinated Plan Wound [facility] meds DVT prophylaxis Encourage p.o. intake Trend labs Full code PT OT Going for an x-ray today of the coccyx due to pain after fall Appreciate subspecialist input Might need intermediate Comment Review of Relevant I have reviewed the following items andre (where applicable) has been applied. Medications: Current Medications Medications (Trade) Dose Ordered Sig/Obdulia Route PRN Reason Start Time Stop Time Status Last Admin Dose Admin Morphine Sulfate (Morphine Sulfate) 1 mg PRN Q10MIN PRN IVP SEVERE PAIN 7-10 07/17/21 10:45 07/17/21 19:00 DC 07/17/21 16:47 Ringer's Solution 1,000 ml @ 30 mls/hr Q24H IV 07/17/21 11:00 07/17/21 16:32 DC 07/17/21 13:07 Acetaminophen/ Hydrocodone Bitart (Lortab 5/325) 1 tab PRN Q4HRS PRN PO MILD PAIN 1-3 07/17/21 13:15 07/18/21 03:17 Vancomycin HCl (Vancomycin) 1 gm STK-MED ONCE .ROUTE 07/17/21 14:18 07/17/21 14:19 DC 07/17/21 14:39 Bupivacaine HCl (Sensorcaine Mpf 0.25%) 30 ml STK-MED ONCE .ROUTE 07/17/21 15:45 07/17/21 15:46 DC 07/17/21 14:29 Gabapentin (Neurontin) 100 mg TID PO 07/17/21 21:00 07/17/21 21:36 Acetaminophen (Tylenol) 650 mg TID PO 07/17/21 21:00 07/17/21 21:36 Oxycodone/ Acetaminophen (Percocet 5/325) 1 tab PRN TID PRN PO SEVERE PAIN 7-10 07/17/21 16:30 07/18/21 06:10 Vitamin D (Vitamin D3) 5,000 unit BID PO 07/17/21 21:00 07/17/21 21:36 Cefazolin Sodium/ Dextrose 50 ml @ 100 mls/hr TID IV 07/17/21 21:00 07/18/21 14:29 07/17/21 21:36 Fentanyl Citrate (Fentanyl 2ml Vial) 25 mcg PRN Q5MIN PRN IVP MILD PAIN 1-3 07/17/21 17:45 07/18/21 17:44 07/17/21 17:58 Fentanyl Citrate (Fentanyl 2ml Vial) 50 mcg PRN Q5MIN PRN IVP MODERATE PAIN 4-6 07/17/21 17:45 07/18/21 17:44 07/17/21 18:29 Justifications for Admission Other Justification Left ankle fracture PABLO ROSA III DO Jul 18, 2021 08:54
[2021-07-18] MEDS: ACETAMINOPHEN 325 MG TABLET. PO SCH ×3 (09:00→21:10)
[2021-07-18] MEDS: GABAPENTIN 100 MG CAPSULE. PO SCH ×3 (09:07→21:10)
[2021-07-18] MEDS: CHOLECALCIFEROL (VITAMIN D3) 5,000 UNIT CAPSULE PO SCH ×2 (09:07→21:11)
[2021-07-18] MEDS: SENNOSIDES/DOCUSATE 8.6/50MG TABLET. PO SCH (09:07)
[2021-07-18] MEDS: MULTIVITAMIN with MINERAL TABLET. PO SCH (09:07)
[2021-07-18 11:56] VITALS: BP 99/62
--- NOTE | 2021-07-18 14:54 | PDOC ---
PROGRESS NOTES Date of Service DATE: 07/18/21 TIME: 14:33 Subjective Subjective S/p July 17, 2021 left ankle open reduction and internal fixation with syndesmotic joint stabilization At bedside, patient relates upwards to 6 out of 10 sharp pain to the lateral ankle. Patient denies any pain to the medial aspect of the ankle. Patient denies any constant duration of symptoms, persistent numbness or tingling sensation. Patient is currently on IV Ancef 2 g 3 times daily. Patient has been working well with PT on a walker while remain nonweightbearing to the surg ical foot. Objective Objective Vital Signs Date Time Temp Pulse Resp B/P (MAP) Pulse Ox O2 Delivery O2 Flow Rate FiO2 07/18/21 12:30 20 Room Air 07/18/21 11:56 97.5 57 99/62 (74) 97.5 07/18/21 06:10 95 07/17/21 19:00 10.0 Intake and Output 07/18/21 07:00 Intake Total 2120 ml Output Total 2150 ml Balance -30 ml Intake Oral 820 ml IV Total 1300 ml Output Urine Total 2100 ml Estimated Blood Loss 50 ml Physical Exam Physical Exam General: AOx3 without distress Dermatology: -Postoperative splint and dressing in place without any strikethrough -Exposed to digits 1 through 5 are pink and blanchable Vascular: -Digits are warm to touch -CFT less than 3 seconds x 5 Neurology: -Light touch sensation intact 1 through 5 digits Musculoskeletal: -Able to move digits -Calf is soft and nontender Diagnosis DIAGNOSIS S/p July 17, 2021 left ankle open reduction and internal fixation, syndesmotic joint stabilization Plan Plan of Care -Explained clinical findings. The ankle was reduced with restored ankle mortise. I explained to patient that the challenges with healing is soft tissue given the amount of edema, fracture blisters. Patient verbalized understanding -Complete 24 hours of IV Ancef 2 g 3 times daily -Monitor for signs of infection -Incentive spirometry compliance -Pain management per protocol -Nonweightbearing to the surgical foot, PT eval and treat for balance, pivot, turn, short distance ambulation while keeping the weight off the surgical foot with appropriate gait aid -Patient may benefit from a SNF placement for elevation, remain nonweightbearing to the surgical foot. Especially given his prior multiple mechanical falls. -Vitamin D 5000 international units, twice daily -Multivitamins daily -Elevate surgical foot with toes above the nose 45 minutes/h, ice behind the knee 15 minutes/h as needed -Pending social media senior associate consult for placement -Pending coccyx x-ray Dispo: I will see patient 1 more time before discharge and plan to discharge with 50,000 international units of vitamin D 3 weekly, zinc sulfate 50 mg daily, magnesium citrate 250 mg twice daily, protein 50 g/day, 2 multivitamin tablets Comment Review of Relevant I have reviewed the following items andre (where applicable) has been applied. Medications Current Medications Fentanyl Citrate (Fentanyl 2ml Vial) 25 mcg PRN Q5MIN PRN IVP MILD PAIN 1-3; Start 07/17/21 at 10:45; Stop 07/17/21 at 16:31; Status DC Fentanyl Citrate (Fentanyl 2ml Vial) 50 mcg PRN Q5MIN PRN IVP MODERATE PAIN 4- 6; Start 07/17/21 at 10:45; Stop 07/17/21 at 16:31; Status DC Morphine Sulfate (Morphine Sulfate) 1 mg PRN Q10MIN PRN IVP SEVERE PAIN 7-10 Last administered on 07/17/21at 16:47; Start 07/17/21 at 10:45; Stop 07/17/21 at 19:00; Status DC Ringer's Solution 1,000 ml @ 30 mls/hr Q24H IV Last administered on 07/17/21at 13:07; Start 07/17/21 at 11:00; Stop 07/17/21 at 16:32; Status DC Hydromorphone HCl (Dilaudid) 0.5 mg PRN Q10MIN PRN IVP SEVERE PAIN 7-10, 2nd CHOICE; Start 07/17/21 at 10:45; Stop 07/17/21 at 19:00; Status DC Prochlorperazine Edisylate (Compazine) 5 mg PACU PRN PRN IVP NAUSEA, MRX1; Start 07/17/21 at 10:45; Stop 07/17/21 at 19:00; Status DC Cefazolin Sodium/ Dextrose 50 ml @ 100 mls/hr 1X PREOP PRN IV PRIOR TO PROCEDURE; Start 07/17/21 at 13:00; Stop 07/17/21 at 16:31; Status DC Sennosides (Senna) 17.2 mg PRN BID PRN PO CONSTIPATION; Start 07/17/21 at 13:15 Docusate Sodium (Colace) 100 mg PRN DAILY PRN PO HARD STOOLS; Start 07/17/21 at 13:15 Ondansetron HCl (Zofran) 4 mg PRN Q6HRS PRN IVP NAUSEA/VOMITING; Start 07/17/21 at 13:15 Dextrose (Dextrose 50%-Water Syringe) 12.5 gm PRN Q15MIN PRN IV SEE COMMENTS; Start 07/17/21 at 13:15 Acetaminophen (Tylenol) 650 mg PRN Q4HRS PRN PO TEMP OVER 100.4F OR MILD PAIN; Start 07/17/21 at 13:15; Stop 07/17/21 at 16:31; Status DC Lorazepam (Ativan) 0.5 mg PRN Q6HRS PRN PO ANXIETY / AGITATION; Start 07/17/21 at 13:15 Lorazepam (Ativan Inj) 0.25 mg PRN Q4HRS PRN IV ANXIETY / AGITATION; Start 07/17/21 at 13:15 Acetaminophen/ Hydrocodone Bitart (Lortab 5/325) 1 tab PRN Q4HRS PRN PO MILD- MODERATE PAIN Last administered on 07/18/21at 03:17; Start 07/17/21 at 13:15 Acetaminophen/ Hydrocodone Bitart (Lortab 5/325) 2 tab PRN Q4HRS PRN PO MODERATE PAIN, SEVERE PAIN; Start 07/17/21 at 13:15; Stop 07/17/21 at 16:31; Status DC Morphine Sulfate (Morphine Sulfate) 1 mg PRN Q1HR PRN IV PAIN; Start 07/17/21 at 13:15; Stop 07/17/21 at 16:31; Status DC Morphine Sulfate (Morphine Sulfate) 2 mg PRN Q2HR PRN IVP SEVERE PAIN 7-10; Start 07/17/21 at 13:15; Stop 07/17/21 at 16:32; Status DC Prochlorperazine Edisylate (Compazine) 10 mg PRN Q6HRS PRN IV NAUSEA/VOMITING; Start 07/17/21 at 13:15; Stop 07/17/21 at 16:32; Status DC Zolpidem Tartrate (Ambien) 2.5 mg PRN QHS PRN PO INSOMNIA; Start 07/17/21 at 13:15 Propofol (Diprivan) 200 mg STK-MED ONCE IV ; Start 07/17/21 at 13:36; Stop 07/17/21 at 13:36; Status DC Lidocaine HCl (Lidocaine Pf 2% Vial) 5 ml STK-MED ONCE .ROUTE ; Start 07/17/21 at 13:37; Stop 07/17/21 at 13:37; Status DC Rocuronium [place] (Zemuron) 50 mg STK-MED ONCE .ROUTE ; Start 07/17/21 at 13:38; Stop 07/17/21 at 13:38; Status DC Dexamethasone Sodium Phosphate (Decadron) 4 mg STK-MED ONCE .ROUTE ; Start 07/17/21 at 13:39; Stop 07/17/21 at 13:40; Status DC Fentanyl Citrate (Fentanyl 5ml Vial) 250 mcg STK-MED ONCE .ROUTE ; Start 07/17/21 at 13:47; Stop 07/17/21 at 13:47; Status DC Vancomycin HCl (Vancomycin) 1 gm STK-MED ONCE .ROUTE Last administered on 07/17/21at 14:39; Start 07/17/21 at 14:18; Stop 07/17/21 at 14:19; Status DC Propofol (Diprivan) 200 mg STK-MED ONCE IV ; Start 07/17/21 at 15:12; Stop 07/17/21 at 15:12; Status DC Propofol (Diprivan) 200 mg STK-MED ONCE IV ; Start 07/17/21 at 15:12; Stop 07/17/21 at 15:12; Status DC Sevoflurane (Ultane) 90 ml STK-MED ONCE IH ; Start 07/17/21 at 15:12; Stop 07/17/21 at 15:12; Status DC Cefazolin Sodium (Ancef) 1 gm STK-MED ONCE IVP ; Start 07/17/21 at 15:36; Stop 07/17/21 at 15:37; Status DC Cefazolin Sodium (Ancef) 1 gm STK-MED ONCE IVP ; Start 07/17/21 at 15:37; Stop 07/17/21 at 15:37; Status DC Neostigmine [place] (Neostigmine Methylsulfate) 5 mg STK-MED ONCE .ROUTE ; Start 07/17/21 at 15:39; Stop 07/17/21 at 15:40; Status DC Glycopyrrolate (Robinul) 1 mg STK-MED ONCE .ROUTE ; Start 07/17/21 at 15:40; Stop 07/17/21 at 15:40; Status DC Glycopyrrolate (Robinul) 1 mg STK-MED ONCE .ROUTE ; Start 07/17/21 at 15:40; Stop 07/17/21 at 15:41; Status DC Bupivacaine HCl (Sensorcaine Mpf 0.25%) 30 ml STK-MED ONCE .ROUTE Last administered on 07/17/21at 14:29; Start 07/17/21 at 15:45; Stop 07/17/21 at 15:46; Status DC Multivitamins (Thera M Plus) 1 tab DAILY PO Last administered on 07/18/21at 09:07; Start 07/18/21 at 09:00 Senna/Docusate Sodium (Senna Plus) 1 tab DAILY PO Last administered on 07/18/21at 09:07; Start 07/18/21 at 09:00 Polyethylene Glycol (miraLAX PACKET) 17 gm PRN DAILY PRN PO CONSTIPATION; Start 07/17/21 at 16:30 Ondansetron HCl (Zofran) 4 mg PRN Q4HRS PRN IVP NAUSEA/VOMITING; Start 07/17/21 at 16:30; Stop 07/17/21 at 16:32; Status DC Dextrose (Dextrose 50%-Water Syringe) 12.5 gm PRN Q15MIN PRN IV SEE COMMENTS; Start 07/17/21 at 16:30; Stop 07/17/21 at 16:31; Status DC Gabapentin (Neurontin) 100 mg TID PO Last administered on 07/18/21at 14:15; Start 07/17/21 at 21:00 Acetaminophen (Tylenol) 650 mg TID PO Last administered on 07/18/21at 14:23; Start 07/17/21 at 21:00 Oxycodone/ Acetaminophen (Percocet 5/325) 1 tab PRN TID PRN PO SEVERE PAIN 7-10 Last administered on 07/18/21at 11:56; Start 07/17/21 at 16:30 Vitamin D (Vitamin D3) 5,000 unit BID PO Last administered on 07/18/21at 09:07; Start 07/17/21 at 21:00 Cefazolin Sodium/ Dextrose 50 ml @ 100 mls/hr TID IV Last administered on 07/18/21at 14:18; Start 07/17/21 at 21:00; Stop 07/18/21 at 14:29; Status DC Morphine Sulfate (Morphine Sulfate) 2 mg STK-MED ONCE .ROUTE ; Start 07/17/21 at 16:40; Stop 07/17/21 at 16:40; Status DC Ropivacaine (Naropin 0.5%) 20 ml STK-MED ONCE .ROUTE ; Start 07/17/21 at 16:52; Stop 07/17/21 at 16:53; Status DC Fentanyl Citrate (Fentanyl 2ml Vial) 25 mcg PRN Q5MIN PRN IVP MILD PAIN 1-3 Last administered on 07/17/21at 17:58; Start 07/17/21 at 17:45; Stop 07/18/21 at 17:44 Fentanyl Citrate (Fentanyl 2ml Vial) 50 mcg PRN Q5MIN PRN IVP MODERATE PAIN 4-6 Last administered on 07/17/21at 18:29; Start 07/17/21 at 17:45; Stop 07/18/21 at 17:44 Morphine Sulfate (Morphine Sulfate) 1 mg PRN Q10MIN PRN IVP SEVERE PAIN 7-10; Start 07/17/21 at 17:45; Stop 07/18/21 at 17:44 Hydromorphone HCl (Dilaudid) 0.5 mg PRN Q10MIN PRN IVP SEVERE PAIN 7-10, 2nd CHOICE; Start 07/17/21 at 17:45; Stop 07/18/21 at 17:44 Prochlorperazine Edisylate (Compazine) 5 mg PACU PRN PRN IVP NAUSEA, MRX1; Start 07/17/21 at 17:45; Stop 07/18/21 at 17:44 Active Scripts Active Hydrocodone-Apap 5-325 (Hydrocodone Bit/Acetaminophen) 1 Tab Tablet 1 Tab PO PRN Q6HRS PRN 4 Days Reported Cephalexin 500 Mg Tablet 500 Mg PO BID Tylenol (Acetaminophen) 325 Mg Tablet 325 Mg PO PRN PRN Vitals/I & O Vital Sign - Last 24 Hours 11/207/17/21 07/17/21 07/17/21 16:04 16:04 16:19 16:34 Pulse 59 56 68 Resp 20 20 20 B/P (MAP) 118/65 118/65 125/55 Pulse Ox 100 100 95 O2 Delivery Simple Mask Mask Simple Mask Room Air O2 Flow Rate 10 10 10 07/17/21 07/17/21 07/17/21 07/17/21 16:47 16:49 16:57 17:04 Pulse 60 64 Resp 20 20 20 20 B/P (MAP) 125/55 110/63 Pulse Ox 99 96 95 97 O2 Delivery Room Air Room Air Room Air Room Air 07/17/21 07/17/21 07/17/21 07/17/21 17:19 17:34 17:43 17:45 Temp 99.4 99.4 Pulse 77 69 85 Resp 20 20 20 20 B/P (MAP) 119/73 119/57 122/74 (90) Pulse Ox 94 94 94 96 O2 Delivery Room Air Room Air Room Air Room Air 07/17/21 07/17/21 07/17/21 07/17/21 17:49 17:58 18:04 18:04 Pulse 73 87 Resp 20 20 20 B/P (MAP) 139/69 120/60 Pulse Ox 96 97 98 O2 Delivery Room Air Room Air Mask Room Air O2 Flow Rate 10 07/17/21 07/17/21 07/17/21 07/17/21 18:29 19:00 19:15 19:40 Temp 99.0 99.0 Pulse 90 Resp 20 18 B/P (MAP) 112/74 (87) Pulse Ox 97 94 97 O2 Delivery Room Air Room Air Mask O2 Flow Rate 10.0 07/17/21 07/17/21 07/17/21 07/17/21 19:45 20:15 21:15 22:15 Temp 99.0 99.2 99.0 99.2 Pulse 87 94 87 86 Resp 18 18 18 18 B/P (MAP) 119/71 (87) 123/60 (81) 109/66 (80) 100/63 (75) Pulse Ox 97 94 94 94 O2 Delivery Room Air Room Air Room Air Room Air 07/17/21 07/18/21 07/18/21 07/18/21 23:25 03:17 03:18 03:47 Temp 98.5 99.6 98.5 99.6 Pulse 87 84 Resp 16 18 18 B/P (MAP) 97/61 (73) 126/71 (89) Pulse Ox 94 97 97 O2 Delivery Room Air Room Air Room Air 07/18/21 07/18/21 07/18/21 07/18/21 06:06 06:10 06:40 08:00 Temp 98.2 98.2 Pulse 77 Resp 16 18 B/P (MAP) 117/68 (84) Pulse Ox 95 95 O2 Delivery Room Air Room Air Room Air Room Air 07/18/21 07/18/21 07/18/21 11:56 11:56 12:30 Temp 97.5 97.5 Pulse 57 Resp 20 20 20 B/P (MAP) 99/62 (74) O2 Delivery Room Air Room Air Room Air Intake and Output 07/17/21 07/17/21 07/18/21 15:00 23:00 07:00 Intake Total 1720 ml 400 ml Output Total 1150 ml 1000 ml Balance 570 ml -600 ml Justifications for Admission Other Justification Left ankle fracture ABIGAIL CHRISTIANSON DPM Jul 18, 2021 14:54
--- NOTE | 2021-07-18 15:18 | RAD ---
EXAM: XR SACRUM AND COCCYX 2+VIEWS 07/18/2021 1:30 PM CLINICAL INDICATION: Fell on back COMPARISON: CT lumbar spine 07/11/2021 TECHNIQUE: 3 views of the sacrum and coccyx FINDINGS: There is no displaced fracture. Pubic symphysis and sacroiliac joints are normal. 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 Advanced lower lumbar degenerative disc disease. IMPRESSION: No displaced fracture. Electronically signed by: Daja Delvalle MD (07/18/2021 3:16 PM) [id number]
--- NOTE | 2021-07-18 16:10 | NUR ---
covid specimen obtained and taken to the lab
[2021-07-18 19:00] VITALS: BP 103/62
--- NOTE | 2021-07-19 04:16 | NUR ---
CMS intact left toes. No drainage seen to splint. Left leg elevated on pillows but refuses ice pack. Asking if he we have beer for him.
[2021-07-19 06:00] VITALS: BP 118/66
--- NOTE | 2021-07-19 08:38 | PDOC ---
PROGRESS NOTES Date of Service DATE: 07/19/21 TIME: 08:35 Subjective Subjective S/p July 17, 2021 left ankle open reduction and internal fixation with syndesmotic joint stabilization Patient was seen resting comfortably in bed. Patient relates upwards to 5 out of 10 sharp pain to the lateral ankle, currently well managed with current pain regimen. Patient denies any numbness or tingling sensation to left lower extremity or any constitutional symptoms. He is working well with PT. Objective Objective Vital Signs Date Time Temp Pulse Resp B/P (MAP) Pulse Ox O2 Delivery O2 Flow Rate FiO2 07/19/21 06:00 98.8 70 20 118/66 (83) 97 Room Air 98.8 07/17/21 19:00 10.0 Intake and Output 07/19/21 07:00 Intake Total 800 ml Output Total 1000 ml Balance -200 ml Intake Oral 800 ml Output Urine Total 1000 ml # Voids 2 # Bowel Movements 1 Physical Exam Physical Exam General: AOx3 without distress Dermatology: -Postoperative splint and dressing in place without any strikethrough -Exposed to digits 1 through 5 are pink and blanchable Vascular: -Digits are warm to touch -CFT less than 3 seconds x 5 Neurology: -Light touch sensation intact 1 through 5 digits Musculoskeletal: -Able to move digits -Calf is soft and nontender Plan Plan of Care -Complete 24 hours of IV Ancef 2 g 3 times daily -Monitor for signs of infection -Incentive spirometry compliance -Pain management per protocol -Nonweightbearing to the surgical foot, PT eval and treat for balance, pivot, turn, short distance ambulation while keeping the weight off the surgical foot with appropriate gait aid -Patient may benefit from a SNF placement for elevation, remain nonweightbearing to the surgical foot. Especially given his prior multiple mechanical falls. -Vitamin D 5000 international units, twice daily -Multivitamins daily -Elevate surgical foot with toes above the nose 45 minutes/h, ice behind the knee 15 minutes/h as needed -Pending community mental health social worker consult for placement -Coccyx x-ray: neg for fx Dispo: Please discharge with 50,000 international units of vitamin D 3 weekly, zinc sulfate 50 mg daily, magnesium citrate 250 mg twice daily, protein 50 g/day, 2 multivitamin tablets Pending placement DVT ppx: outpatient with ASA 81mg daily, sustained hydration and upper body mobility Pain management: consider [place] [5mg], q6h prn, gabapentin 100mg, q6h x 10 days Patient to return to outpatient clinic for dressing change in 6 days. Our office will call patient for time and date arrangement From my perspective, patient is safe to be discharged to SNF Comment Review of Relevant I have reviewed the following items andre (where applicable) has been applied. Medications Current Medications Fentanyl Citrate (Fentanyl 2ml Vial) 25 mcg PRN Q5MIN PRN IVP MILD PAIN 1-3; Start 07/17/21 at 10:45; Stop 07/17/21 at 16:31; Status DC Fentanyl Citrate (Fentanyl 2ml Vial) 50 mcg PRN Q5MIN PRN IVP MODERATE PAIN 4- 6; Start 07/17/21 at 10:45; Stop 07/17/21 at 16:31; Status DC Morphine Sulfate (Morphine Sulfate) 1 mg PRN Q10MIN PRN IVP SEVERE PAIN 7-10 Last administered on 07/17/21at 16:47; Start 07/17/21 at 10:45; Stop 07/17/21 at 19:00; Status DC Ringer's Solution 1,000 ml @ 30 mls/hr Q24H IV Last administered on 07/17/21at 13:07; Start 07/17/21 at 11:00; Stop 07/17/21 at 16:32; Status DC Hydromorphone HCl (Dilaudid) 0.5 mg PRN Q10MIN PRN IVP SEVERE PAIN 7-10, 2nd CHOICE; Start 07/17/21 at 10:45; Stop 07/17/21 at 19:00; Status DC Prochlorperazine Edisylate (Compazine) 5 mg PACU PRN PRN IVP NAUSEA, MRX1; Start 07/17/21 at 10:45; Stop 07/17/21 at 19:00; Status DC Cefazolin Sodium/ Dextrose 50 ml @ 100 mls/hr 1X PREOP PRN IV PRIOR TO PROCEDURE; Start 07/17/21 at 13:00; Stop 07/17/21 at 16:31; Status DC Sennosides (Senna) 17.2 mg PRN BID PRN PO CONSTIPATION; Start 07/17/21 at 13:15 Docusate Sodium (Colace) 100 mg PRN DAILY PRN PO HARD STOOLS; Start 07/17/21 at 13:15 Ondansetron HCl (Zofran) 4 mg PRN Q6HRS PRN IVP NAUSEA/VOMITING; Start 07/17/21 at 13:15 Dextrose (Dextrose 50%-Water Syringe) 12.5 gm PRN Q15MIN PRN IV SEE COMMENTS; Start 07/17/21 at 13:15 Acetaminophen (Tylenol) 650 mg PRN Q4HRS PRN PO TEMP OVER 100.4F OR MILD PAIN; Start 07/17/21 at 13:15; Stop 07/17/21 at 16:31; Status DC Lorazepam (Ativan) 0.5 mg PRN Q6HRS PRN PO ANXIETY / AGITATION; Start 07/17/21 at 13:15 Lorazepam (Ativan Inj) 0.25 mg PRN Q4HRS PRN IV ANXIETY / AGITATION; Start 07/17/21 at 13:15 Acetaminophen/ Hydrocodone Bitart (Lortab 5/325) 1 tab PRN Q4HRS PRN PO MILD- MODERATE PAIN Last administered on 07/18/21at 23:22; Start 07/17/21 at 13:15 Acetaminophen/ Hydrocodone Bitart (Lortab 5/325) 2 tab PRN Q4HRS PRN PO MODERATE PAIN, SEVERE PAIN; Start 07/17/21 at 13:15; Stop 07/17/21 at 16:31; Status DC Morphine Sulfate (Morphine Sulfate) 1 mg PRN Q1HR PRN IV PAIN; Start 07/17/21 at 13:15; Stop 07/17/21 at 16:31; Status DC Morphine Sulfate (Morphine Sulfate) 2 mg PRN Q2HR PRN IVP SEVERE PAIN 7-10; Start 07/17/21 at 13:15; Stop 07/17/21 at 16:32; Status DC Prochlorperazine Edisylate (Compazine) 10 mg PRN Q6HRS PRN IV NAUSEA/VOMITING; Start 07/17/21 at 13:15; Stop 07/17/21 at 16:32; Status DC Zolpidem Tartrate (Ambien) 2.5 mg PRN QHS PRN PO INSOMNIA; Start 07/17/21 at 13:15 Propofol (Diprivan) 200 mg STK-MED ONCE IV ; Start 07/17/21 at 13:36; Stop 07/17/21 at 13:36; Status DC Lidocaine HCl (Lidocaine Pf 2% Vial) 5 ml STK-MED ONCE .ROUTE ; Start 07/17/21 at 13:37; Stop 07/17/21 at 13:37; Status DC Rocuronium [place] (Zemuron) 50 mg STK-MED ONCE .ROUTE ; Start 07/17/21 at 13:38; Stop 07/17/21 at 13:38; Status DC Dexamethasone Sodium Phosphate (Decadron) 4 mg STK-MED ONCE .ROUTE ; Start 07/17/21 at 13:39; Stop 07/17/21 at 13:40; Status DC Fentanyl Citrate (Fentanyl 5ml Vial) 250 mcg STK-MED ONCE .ROUTE ; Start 07/17/21 at 13:47; Stop 07/17/21 at 13:47; Status DC Vancomycin HCl (Vancomycin) 1 gm STK-MED ONCE .ROUTE Last administered on 07/17/21at 14:39; Start 07/17/21 at 14:18; Stop 07/17/21 at 14:19; Status DC Propofol (Diprivan) 200 mg STK-MED ONCE IV ; Start 07/17/21 at 15:12; Stop 07/17/21 at 15:12; Status DC Propofol (Diprivan) 200 mg STK-MED ONCE IV ; Start 07/17/21 at 15:12; Stop 07/17/21 at 15:12; Status DC Sevoflurane (Ultane) 90 ml STK-MED ONCE IH ; Start 07/17/21 at 15:12; Stop 07/17/21 at 15:12; Status DC Cefazolin Sodium (Ancef) 1 gm STK-MED ONCE IVP ; Start 07/17/21 at 15:36; Stop 07/17/21 at 15:37; Status DC Cefazolin Sodium (Ancef) 1 gm STK-MED ONCE IVP ; Start 07/17/21 at 15:37; Stop 07/17/21 at 15:37; Status DC Neostigmine [place] (Neostigmine Methylsulfate) 5 mg STK-MED ONCE .ROUTE ; Start 07/17/21 at 15:39; Stop 07/17/21 at 15:40; Status DC Glycopyrrolate (Robinul) 1 mg STK-MED ONCE .ROUTE ; Start 07/17/21 at 15:40; Stop 07/17/21 at 15:40; Status DC Glycopyrrolate (Robinul) 1 mg STK-MED ONCE .ROUTE ; Start 07/17/21 at 15:40; Stop 07/17/21 at 15:41; Status DC Bupivacaine HCl (Sensorcaine Mpf 0.25%) 30 ml STK-MED ONCE .ROUTE Last administered on 07/17/21at 14:29; Start 07/17/21 at 15:45; Stop 07/17/21 at 15:46; Status DC Multivitamins (Thera M Plus) 1 tab DAILY PO Last administered on 07/18/21at 09 :07; Start 07/18/21 at 09:00 Senna/Docusate Sodium (Senna Plus) 1 tab DAILY PO Last administered on 07/18/21at 09:07; Start 07/18/21 at 09:00 Polyethylene Glycol (miraLAX PACKET) 17 gm PRN DAILY PRN PO CONSTIPATION; Start 07/17/21 at 16:30 Ondansetron HCl (Zofran) 4 mg PRN Q4HRS PRN IVP NAUSEA/VOMITING; Start 07/17/21 at 16:30; Stop 07/17/21 at 16:32; Status DC Dextrose (Dextrose 50%-Water Syringe) 12.5 gm PRN Q15MIN PRN IV SEE COMMENTS; Start 07/17/21 at 16:30; Stop 07/17/21 at 16:31; Status DC Gabapentin (Neurontin) 100 mg TID PO Last administered on 07/18/21at 21:10; Start 07/17/21 at 21:00 Acetaminophen (Tylenol) 650 mg TID PO Last administered on 07/18/21at 21:10; Start 07/17/21 at 21:00 Oxycodone/ Acetaminophen (Percocet 5/325) 1 tab PRN TID PRN PO SEVERE PAIN 7-10 Last administered on 07/18/21at 15:57; Start 07/17/21 at 16:30 Vitamin D (Vitamin D3) 5,000 unit BID PO Last administered on 07/18/21at 21:11; Start 07/17/21 at 21:00 Cefazolin Sodium/ Dextrose 50 ml @ 100 mls/hr TID IV Last administered on 07/18/21at 14:18; Start 07/17/21 at 21:00; Stop 07/18/21 at 14:29; Status DC Morphine Sulfate (Morphine Sulfate) 2 mg STK-MED ONCE .ROUTE ; Start 07/17/21 at 16:40; Stop 07/17/21 at 16:40; Status DC Ropivacaine (Naropin 0.5%) 20 ml STK-MED ONCE .ROUTE ; Start 07/17/21 at 16:52; Stop 07/17/21 at 16:53; Status DC Fentanyl Citrate (Fentanyl 2ml Vial) 25 mcg PRN Q5MIN PRN IVP MILD PAIN 1-3 Last administered on 07/17/21at 17:58; Start 07/17/21 at 17:45; Stop 07/18/21 at 17:44; Status DC Fentanyl Citrate (Fentanyl 2ml Vial) 50 mcg PRN Q5MIN PRN IVP MODERATE PAIN 4-6 Last administered on 07/17/21at 18:29; Start 07/17/21 at 17:45; Stop 07/18/21 at 17:44; Status DC Morphine Sulfate (Morphine Sulfate) 1 mg PRN Q10MIN PRN IVP SEVERE PAIN 7-10; Start 07/17/21 at 17:45; Stop 07/18/21 at 17:44; Status DC Hydromorphone HCl (Dilaudid) 0.5 mg PRN Q10MIN PRN IVP SEVERE PAIN 7-10, 2nd CHOICE; Start 07/17/21 at 17:45; Stop 07/18/21 at 17:44; Status DC Prochlorperazine Edisylate (Compazine) 5 mg PACU PRN PRN IVP NAUSEA, MRX1; Start 07/17/21 at 17:45; Stop 07/18/21 at 17:44; Status DC Active Scripts Active Hydrocodone-Apap 5-325 (Hydrocodone Bit/Acetaminophen) 1 Tab Tablet 1 Tab PO PRN Q6HRS PRN 4 Days Reported Cephalexin 500 Mg Tablet 500 Mg PO BID Tylenol (Acetaminophen) 325 Mg Tablet 325 Mg PO PRN PRN Vitals/I & O Vital Sign - Last 24 Hours 07/18/21 07/18/21 07/18/21 07/18/21 11:56 11:56 12:30 15:40 Temp 97.5 97.5 Pulse 57 Resp 20 20 20 16 B/P (MAP) 99/62 (74) O2 Delivery Room Air Room Air Room Air Room Air 07/18/21 07/18/21 07/18/21 07/18/21 18:37 19:00 19:10 23:22 Temp 98.8 98.8 Pulse 77 Resp 20 20 20 20 B/P (MAP) 103/62 (76) Pulse Ox 96 O2 Delivery Room Air Room Air Room Air 07/18/21 07/19/21 23:55 06:00 Temp 98.8 98.8 Pulse 70 Resp 20 20 B/P (MAP) 118/66 (83) Pulse Ox 97 O2 Delivery Room Air Room Air Intake and Output 07/18/21 07/18/21 07/19/21 15:00 23:00 07:00 Intake Total 500 ml 300 ml Output Total 450 ml 550 ml Balance -450 ml 500 ml -250 ml Justifications for Admission Other Justification Left ankle fracture ABGIAIL CHRISTIANSON DPM Jul 19, 2021 08:38
[2021-07-19] MEDS: GABAPENTIN 100 MG CAPSULE. PO SCH ×3 (08:41→20:41)
[2021-07-19] MEDS: SENNOSIDES/DOCUSATE 8.6/50MG TABLET. PO SCH (08:41)
[2021-07-19] MEDS: MULTIVITAMIN with MINERAL TABLET. PO SCH (08:41)
[2021-07-19] MEDS: CHOLECALCIFEROL (VITAMIN D3) 5,000 UNIT CAPSULE PO SCH ×2 (08:42→20:41)
[2021-07-19] MEDS: HYDROcodone/APAP 5/325MG 1 TAB TABLET PO PRN ×3 (08:46→20:42)
[2021-07-19] MEDS: ACETAMINOPHEN 325 MG TABLET. PO SCH ×3 (09:00→20:42)
[2021-07-19 11:02] VITALS: BP 122/79
--- NOTE | 2021-07-19 11:32 | PDOC ---
[facility] PROGRESS NOTE Date of Service DOS: DATE: 07/19/21 TIME: 11:31 Chief Complaint Chief Complaint Postop day 2 ORIF left ankle fracture Gastric bypass in 2003, bilateral hip placements in 2004. Patient is Covid vaccinated History of Present Illness History of Present Illness 07/19 Patient evaluated examined at bedside. Doing well says pain is well controlled. Definitely needs rehab placement. Plan for discharge to [facility] tomorrow. 07/18/2021 Patient seen and examined Discussed with RN Chart reviewed His left leg is in a cast He had some coccygeal pain going for an x-ray today Vitals/I&O Vitals/I&O: Vital Signs Date Time Temp Pulse Resp B/P (MAP) Pulse Ox O2 Delivery O2 Flow Rate FiO2 07/19/21 11:02 98.2 66 20 122/79 (93) 97 Room Air 98.2 07/19/21 08:00 10.0 I & O 07/18/21 07/18/21 07/19/21 15:00 23:00 07:00 Intake Total 500 ml 300 ml Output Total 450 ml 550 ml Balance -450 ml 500 ml -250 ml Physical Exam General: No acute distress Heart: Regular rate Lungs: Clear Abdomen: Normal bowel sounds Extremities: Other (Left leg in cast) Skin: No rashes Assessment and Plan Assessmemt and Plan Postop day 2 ORIF left ankle fracture Gastric bypass in 2003, bilateral hip placements in 2004. Patient is Covid vaccinated Plan Wound jail meds DVT prophylaxis Encourage p.o. intake Trend labs Full code PT OT Going for an x-ray today of the coccyx due to pain after fall Appreciate subspecialist input Might need intermediate Comment Review of Relevant I have reviewed the following items andre (where applicable) has been applied. Justifications for Admission Other Justification Left ankle fracture PHANI RAY MD Jul 19, 2021 11:32
[2021-07-19 15:06] VITALS: BP 125/84
[2021-07-19] MEDS: oxyCODONE/APAP 5/325 1 TAB TABLET PO PRN (16:46)
[2021-07-19 19:00] VITALS: BP 91/73
[2021-07-19 23:00] VITALS: BP 111/62
[2021-07-20] MEDS: HYDROcodone/APAP 5/325MG 1 TAB TABLET PO PRN ×3 (01:25→12:05)
[2021-07-20 08:32] VITALS: BP 124/60
[2021-07-20] MEDS: MULTIVITAMIN with MINERAL TABLET. PO SCH (08:41)
[2021-07-20] MEDS: CHOLECALCIFEROL (VITAMIN D3) 5,000 UNIT CAPSULE PO SCH (08:41)
[2021-07-20] MEDS: GABAPENTIN 100 MG CAPSULE. PO SCH (08:41)
[2021-07-20] MEDS: ACETAMINOPHEN 325 MG TABLET. PO SCH (08:41)
[2021-07-20] MEDS: SENNOSIDES/DOCUSATE 8.6/50MG TABLET. PO SCH (08:42)
[2021-07-20] MEDS ORDERED: OXYC1TAB15 PO (09:12)
--- NOTE | 2021-07-20 09:15 | SNU/HH DC ---
DISCHARGE ORDERS DISCHARGE INFORMATION: DISCHARGE DATE: Jul 20, 2021 FINAL DIAGNOSIS Ankle Fracture CONDITION ON DISCHARGE: Stable CODE STATUS: Code Status: Full FPC: SNF STAY <30 DAYS: Yes POST DISCHARGE ORDERS: ACTIVITY ORDERS: Activity as tolerated WEIGHT BEARING STATUS: As tolerated DIET AFTER DISCHARGE: Regular WOUND/INCISION CARE: Ice to area for comfort, Keep wound/cast CDI CHECKS AFTER DISCHARGE: CHECKS AFTER DISCHARGE: Check blood press - daily, Check your Temp as needed TREATMENT/EQUIPMENT ORDERS: ADAPTIVE EQUIPMENT NEEDED: Crutches, Walker Physical Therapy For: Evalulation/Treatment Occupational Therapy For: Evaluation/Treatment DISCHARGE MEDICATIONS: Home Meds Active Scripts Multivitamin (One-Daily Multi-Vitamin) 1 Each Tablet, 2 TAB PO DAILY for nutrition for 30 Days, #60 TAB 0 Refills Prov:PHANI RAY MD 07/20/21 Cholecalciferol (Vitamin D3) (Vitamin D3) 1,250 Mcg Capsule, 1250 MCG PO WEEKLY for deficiency for 60 Days, #60 CAP Prov:PHANI RAY MD 07/20/21 Protein Supplement (Nutritional Drink Mix) 420 Gm Powder, 420 GM PO DAILY for malnutrition for 30 Days, #30 MISC Prov:PHANI RAY MD 07/20/21 Magnesium Citrate (MAGNESIUM CITRATE) 100 Mg Tablet, 100 MG PO BID for constipation for 60 Days, #120 TAB Prov:PHANI RAY MD 07/20/21 Zinc Sulfate (Zinc Sulfate) 50 Mg Tablet, 50 MG PO DAILY for wound healing for 60 Days, #60 TAB Prov:PHANI RAY MD 07/20/21 Oxycodone/Apap 5-325 (PERCOCET 5-325 MG TABLET ) 1 Each Tablet, 1 TAB PO PRN TID PRN for SEVERE PAIN 7-10 for 14 Days, #30 TAB Prov:PHANI RAY MD 07/20/21 Reported Medications Acetaminophen (TYLENOL) 325 Mg Tablet, 325 MG PO PRN PRN for PAIN, TAB 07/17/21 Discontinued Reported Medications Cephalexin (CEPHALEXIN) 500 Mg Tablet, 500 MG PO BID for ANTIBIOTIC , TAB 07/17/21 Discontinued Scripts Hydrocodone Bit/Acetaminophen (HYDROCODONE-APAP 5-325 ) 1 Tab Tablet, 1 TAB PO PRN Q6HRS PRN for PAIN for 4 Days, #16 TAB 0 Refills Prov:ELIUD CAUSEY DO 07/11/21 PHANI RAY MD Jul 20, 2021 09:15
[2021-07-20] MEDS ORDERED: PROT420P PO (09:48)
[2021-07-20] MEDS ORDERED: MULT-735 PO (09:48)
[2021-07-20] MEDS ORDERED: MAGN100T6 PO (09:48)
[2021-07-20] MEDS ORDERED: CHOL500050 PO (09:48)
[2021-07-20] MEDS ORDERED: ZINC220T3 PO (09:48)
--- NOTE | 2021-07-20 13:10 | NUR ---
Patient left in a wheelchair to at 1310. at bedside. Discharge education gone over with the patient and the facility prior to dismissal. Splint with wrap to LLE is CDI with no drainge noted. Education performed by OT, PT, and this nurse about NWB status and restrictions- patient stated understanding. IV discontinued without complications. Medications sent and submitted by Dr Ortiz. No concerns noted at discharge.
[2021-07-22] MEDS ORDERED: HYDR-2761 PO (07:46)
--- NOTE | 2021-08-05 20:56 | PDOC3 ---
[facility]-Discharge Summary Date of Admission: Date of Admission: Jul 17, 2021 Date of Discharge: Date of Discharge: Jul 20, 2021 Admission Diagnosis: Problems: (1) Ankle fracture Discharge Diagnosis: Discharge Diagnosis: Same Consults: Consults: Ortho Hospital Course: Hospital Course: Chief Complaint Postop day 2 ORIF left ankle fracture Gastric bypass in 2003, bilateral hip placements in 2004. Patient is Covid vaccinated History of Present Illness History of Present Illness 07/20 Patient evaluated and examined at bedside. Discharge to [facility] today. 07/19 Patient evaluated examined at bedside. Doing well says pain is well controlled. Definitely needs rehab placement. Plan for discharge to [facility] tomorrow. 07/18/2021 Patient seen and examined Discussed with RN Chart reviewed His left leg is in a cast He had some coccygeal pain going for an x-ray today Disposition: Disposition/Orders: D/C to Another Facility Activity: Activity: Resume previous activity Diet: Diet: Regular Medications: Home Meds Active Scripts Hydrocodone Bit/Acetaminophen (HYDROCODONE-APAP 5-325 ) 1 Tab Tablet, 1 TAB PO PRN Q6HRS PRN for PAIN, #18 TAB 0 Refills Prov:FLAKITA LARRY MD 07/22/21 Multivitamin (One-Daily Multi-Vitamin) 1 Each Tablet, 2 TAB PO DAILY for nutrition for 30 Days, #60 TAB 0 Refills Prov:PHANI RAY MD 07/20/21 Cholecalciferol (Vitamin D3) (Vitamin D3) 1,250 Mcg Capsule, 1250 MCG PO WEEKLY for deficiency for 60 Days, #60 CAP Prov:PHANI RAY MD 07/20/21 Protein Supplement (Nutritional Drink Mix) 420 Gm Powder, 420 GM PO DAILY for malnutrition for 30 Days, #30 MISC Prov:PHANI RAY MD 07/20/21 Magnesium Citrate (MAGNESIUM CITRATE) 100 Mg Tablet, 100 MG PO BID for constipation for 60 Days, #120 TAB Prov:PHANI RAY MD 07/20/21 Zinc Sulfate (Zinc Sulfate) 50 Mg Tablet, 50 MG PO DAILY for wound healing for 60 Days, #60 TAB Prov:PHANI RAY MD 07/20/21 Oxycodone/Apap 5-325 (PERCOCET 5-325 MG TABLET ) 1 Each Tablet, 1 TAB PO PRN TID PRN for SEVERE PAIN 7-10 for 14 Days, #30 TAB Prov:PHANI RAY MD 07/20/21 Reported Medications Acetaminophen (TYLENOL) 325 Mg Tablet, 325 MG PO PRN PRN for PAIN, TAB 07/17/21 Scheduled Cholecalciferol (Vitamin D3) (Vitamin D3), 1,250 MCG PO WEEKLY Magnesium Citrate (Magnesium Citrate), 100 MG PO BID Multivitamin (One-Daily Multi-Vitamin), 2 TAB PO DAILY Protein Supplement (Nutritional Drink Mix), 420 GM PO DAILY Zinc Sulfate (Zinc Sulfate), 50 MG PO DAILY Scheduled PRN Acetaminophen (Tylenol), 325 MG PO PRN PRN for PAIN, (Reported) Hydrocodone Bit/Acetaminophen (Hydrocodone-Apap 5-325 ), 1 TAB PO PRN Q6HRS PRN for PAIN Oxycodone/Apap 5-325 (Percocet 5-325 Mg Tablet ), 1 TAB PO PRN TID PRN for SEVERE PAIN 7-10 Justicifation of Admission Dx: Justifications for Admission: Justification of Admission Dx: Yes Fracture: Fracture PHANI RAY MD Aug 05, 2021 20:56
== END 2021-07-20 13:13 | DRG 494 ==
LOC: SURG 12:14 → 4 SOUTHEST 16:30 → 4 NORTH 07-19 19:00
PROVIDERS: ADMIT Internal Medicine; ATTEND Internal Medicine
PROC: 0QSH04Z Reposition Left Tibia with Internal Fixation Device, Open Approach (ICD-10-PCS; 2021-07-17)
PROC: 0QSK04Z Reposition Left Fibula with Internal Fixation Device, Open Approach (ICD-10-PCS; principal; 2021-07-17 14:00)
DX: S82.842A Displaced bimalleolar fracture of left lower leg, initial encounter for closed fracture (principal); M53.3 Sacrococcygeal disorders, not elsewhere classified; Z96.643 Presence of artificial hip joint, bilateral; Z98.84 Bariatric surgery status; Z20.822 Contact with and (suspected) exposure to COVID-19; Z68.30 Body mass index [BMI] 30.0-30.9, adult; W18.39XA Other fall on same level, initial encounter; Y93.89 Activity, other specified; Y92.89 Other specified places as the place of occurrence of the external cause; Y99.8 Other external cause status
CPT/HCPCS: 72220; 73610; 76000; A4209; A4930; A6223; A6253; A6402; A6449; A6450; A6455; A6457; C1713; J0690; J1100; J2270; J2405; J2704; J2710; J2795; J3010; J3370; J3490; U0003; 97110-GP; 97116-GP; 97530-GP; 97535-GO; G0378

== ENCOUNTER 2021-10-31 07:29 | Inpatient (IN) | payer MEDICARE ==
[~2021-10-31] VITALS: Ht 177.8 cm; Wt 92.6 kg
[2021-10-31] VITALS (11 sets, daily range): BP systolic 87–127; BP diastolic 53–68
[~2021-10-31 07:29] MED LIST changes: +ACET325T9 PO; +CEPH500T PO; +CHOL500050 PO; -HYDROmorphone 2 MG/ML VIAL IVP PRN; +MAGN100T6 PO; +MULT-735 PO; +OXYC1TAB15 PO; -PROCHLORPERAZINE 10 MG/2 ML VIAL. IVP PRN; +PROT420P PO; +ZINC220T3 PO
[2021-10-31] MEDS ORDERED: LIDOCAINE 1% PF 5 ML VIAL. ONE (08:16)
[2021-10-31] MEDS ORDERED: PROPOFOL 10 MG/ML (20ML) VIAL. IV ONE (08:16)
[2021-10-31] MEDS ORDERED: PHENYLEPHRINE in 0.9% NACL PF 1 MG/10 ML SYRINGE. IV ONE (08:17)
[2021-10-31] MEDS ORDERED: fentaNYL PF VIAL 100 MCG/2 ML VIAL ONE ×5 (08:17→15:39)
--- NOTE | 2021-10-31 08:59 | PDOC1 ---
History and Physical Date of Admission Date of Admission DATE: 10/31/21 TIME: 08:32 Identification/Chief Complaint Chief Complaint Left ankle pain Source Source: Patient History of Present Illness History of Present Illness Mr Rees is a 66 yo male with PMHx s/p gastric bypass, s/p bilateral hip replacement, and recent complicated ankle fracture in June 2021 status post repair 07/17/2021 who comes in with persistent left ankle pain and instability. Being seen today for preoperative physical for left ankle hardware removal deltoid ligament repair spring ligament repair first tarsometatarsal joint fusion possible flexor digitorum longus transfer. He is s/p gastric bypass in 2003, bilateral hip placements in 2004. Patient is Covid vaccinated with [employer] vaccine. Status post ORIF left ankle 07/17/2021. He is lost 30 pounds since his ankle surgery he and his think due to pain. Due to his weight loss Dr. Calixto referred him to Dr. Johnson and he had a colonoscopy approximately 2 weeks ago. Seen bedside. Had some vagal response with IV insertion this morning. No recent travel or sick contacts. Other than above weight loss and left ankle persistent pain and development of flatfoot he has no other complaints. 06/2021 EKG Sinus rhythm 59 bpm, left axis deviation, first-degree AV block with IN interval 202, QTc 46, T wave inversion lead III and aVF, no ST elevation or ST depression Rapid covid 19 negative, no other labs at this time. Past Surgical History Past Surgical History Gastric bypass 2003 Past Surgical History: Total hip replacement (Bilateral - 2004), Other (Left ankle surgery) Family History Family History: High Cholestrol, Hypertension Social History Smoke: No ALCOHOL: heavy Current Medications Current Medications Current Medications Fentanyl Citrate (Fentanyl 2ml Vial) 25 mcg PRN Q5MIN PRN IVP MILD PAIN 1-3; Start 10/31/21 at 06:00; Stop 11/01/21 at 05:59 Fentanyl Citrate (Fentanyl 2ml Vial) 50 mcg PRN Q5MIN PRN IVP MODERATE PAIN 4- 6; Start 10/31/21 at 06:00; Stop 11/01/21 at 05:59 Morphine Sulfate (Morphine Sulfate) 1 mg PRN Q10MIN PRN IVP SEVERE PAIN 7-10; Start 10/31/21 at 06:00; Stop 11/01/21 at 05:59 Ringer's Solution 1,000 ml @ 30 mls/hr Q24H IV Last administered on 10/31/21at 08:06; Start 10/31/21 at 06:00; Stop 10/31/21 at 17:59 Hydromorphone HCl (Dilaudid) 0.5 mg PRN Q10MIN PRN IVP SEVERE PAIN 7-10, 2nd CHOICE; Start 10/31/21 at 06:00; Stop 11/01/21 at 05:59 Prochlorperazine Edisylate (Compazine) 5 mg PACU PRN PRN IVP NAUSEA, MRX1; Start 10/31/21 at 06:00; Stop 11/01/21 at 05:59 Cefazolin Sodium/ Dextrose 50 ml @ 100 mls/hr 1X PREOP PRN IV PRIOR TO PROCEDURE; Start 10/31/21 at 06:00; Stop 10/31/21 at 18:00 Propofol (Diprivan) 200 mg STK-MED ONCE IV ; Start 10/31/21 at 08:16; Stop 10/31/21 at 08:17; Status DC Lidocaine HCl (Xylocaine-Mpf 1% 5ml Vial) 5 ml STK-MED ONCE .ROUTE ; Start 10/31/21 at 08:16; Stop 10/31/21 at 08:17; Status DC Phenylephrine HCl (PHENYLEPHRINE in 0.9% NACL PF) 1 mg STK-MED ONCE IV ; Start 10/31/21 at 08:17; Stop 10/31/21 at 08:17; Status DC Fentanyl Citrate (Fentanyl 2ml Vial) 100 mcg STK-MED ONCE .ROUTE ; Start 10/31/21 at 08:17; Stop 10/31/21 at 08:17; Status DC Active Scripts Active Hydrocodone-Apap 5-325 (Hydrocodone Bit/Acetaminophen) 1 Tab Tablet 1 Tab PO PRN Q6HRS PRN One-Daily Multi-Vitamin (Multivitamin) 1 Each Tablet 2 Tab PO DAILY 30 Days Vitamin D3 (Cholecalciferol (Vitamin D3)) 1,250 Mcg Capsule 1,250 Mcg PO WEEKLY 60 Days Nutritional Drink Mix (Protein Supplement) 420 Gm Powder 420 Gm PO DAILY 30 Days Magnesium Citrate 100 Mg Tablet 100 Mg PO BID 60 Days Zinc Sulfate 50 Mg Tablet 50 Mg PO DAILY 60 Days Percocet 5-325 Mg Tablet (Oxycodone/Acetaminophen) 1 Each Tablet 1 Tab PO PRN TID PRN 14 Days Reported Tylenol (Acetaminophen) 325 Mg Tablet 325 Mg PO PRN PRN Allergies Allergies: Coded Allergies: No Known Drug Allergies (Unverified , 07/17/21) ROS General: No: Chills, Night Sweats, Fatigue, Malaise, Appetite, Other PSYCHOLOGICAL ROS: No: Anxiety, Behavioral Disorder, Concentration difficultie, Decreased libido, Depression, Disorientation, Hallucinations, Hostility, Irritablity, Memory difficulties, Mood Swings, Obsessive thoughts, Physical abuse, Sexual abuse, Sleep disturbances, Suicidal ideation, Other Eyes: No Blurry vision, No Decreased vision, No Double vision, No Dry eyes, No Excessive tearing, No Eye Pain, No Itchy Eyes, No Loss of vision, No Photophobia, No Scotomata, No Uses contacts, No Uses glasses, No Other HEENT: No: Heacaches, Visual Changes, Hearing change, Nasal congestion, Nasal discharge, Oral lesions, Sinus pain, Sore Throat, Epistaxis, Sneezing, Snoring, Tinnitus, Vertigo, Vocal changes, Other ALLERGY AND IMMUNOLOGY: No: Hives, Insect Bite Sensitivity, Itchy/Watery Eyes, Nasal Congestion, Post Nasal Drip, Seasonal Allergies, Other Hematological and Lymphatic: No: Bleeding Problems, Blood Clots, Blood Transfusions, Brusing, Night Sweats, Pallor, Swollen Lymph Nodes, Other ENDOCRINE: No: Breast Changes, Galactorrhea, Hair Pattern Changes, Hot Flashes, Malaise/lethargy, Mood Swings, Palpitations, Polydipsia/polyuria, Skin Changes, Temperature Intolerance, Unexpected Weight Changes, Other Breast: No New/Changing Breast Lumps, No Nipple changes, No Nipple discharge, No Other Respiratory: No: Cough, Hemoptysis, Orthopnea, Pleuritic Pain, Shortness of breath, SOB with excertion, Sputum Changes, Stridor, Tachypnea, Wheezing, Other Cardiovascular: No Chest Pain, No Palpitations, No Orthopnea, No Paroxysmal Noc. Dyspnea, No Edema, No Lt Headedness, No Other Gastrointestinal: No Nausea, No Vomiting, No Abdominal Pain, No Diarrhea, No Constipation, No Melena, No Hematochezia, No Other Genitourinary: No Dysuria, No Frequency, No Incontinence, No Hematuria, No Retention, No Discharge, No Urgency, No Pain, No Flank Pain, No Other, No , No , No , No , No , No , No Musculoskeletal: Yes Gait Disturbance, Yes Joint Pain, Yes Joint Stiffness; No Joint Swelling, No Muscle Pain, No Muscular Weakness, No Pain In:, No Swelling In:, No Other Neurological: No Behavorial Changes, No Bowel/Bladder ControlChng, No Confusion, No Dizziness, No Gait Disturbance, No Headaches, No Impaired Coord/balance, No Memory Loss, No Numbness/Tingling, No Seizures, No Speech Problems, No Tremors, No Visual Changes, No Weakness, No Other Skin: No Dry Skin, No Eczema, No Hair Changes, No Lumps, No Mole Changes, No Mottling, No Nail Changes, No Pruritus, No Rash, No Skin Lesion Changes, No Other, No Acne Physical Exam General: Alert, Oriented X3, Cooperative, No acute distress HEENT: Atraumatic, PERRLA, EOMI, Mucous membr. moist/pink Lungs: Clear to auscultation, Normal air movement Heart: S1S2, RRR, no thrills, no rubs, no gallops, no murmurs Abdomen: Normal bowel sounds, Soft, No tenderness, No hepatosplenomegaly, No masses Rectal Exam: not examined Extremities: No clubbing, No cyanosis, No edema, Normal pulses, Other (left ankle tender and swollen) Skin: No rashes, No breakdown, No significant lesion Neuro: Normal gait, Normal speech, Strength at 5/5 X4 ext, Normal tone, Sensation intact, Cranial nerves 3-12 NL, Reflexes 2+ Psych/Mental Status: Mental status NL, Mood NL Vitals Vitals Vital Signs Date Time Temp Pulse Resp B/P (MAP) Pulse Ox O2 Delivery O2 Flow Rate FiO2 10/31/21 08:02 97.9 60 20 98 97.9 10/31/21 07:52 117/56 Room Air VTE Prophylaxis Ordered VTE Prophylaxis Devices: Yes VTE Pharmacological Prophylaxi: Yes Assessment/Plan Assessment/Plan A/P: Left ankle pain -status post ORIF July 2021. No further testing prior to planned hardware removal and tendon repair. Unintentional weight loss - just had repeat colonoscopy [address] Elder S/p Gastric Bypass 2003 Alcohol use disorder - no history of admission for withdrawal. Will place on CIWA post-operatively. FEN - NPO PPX - lovenox FULL CODE Dispo - will likely need inpatient admission post-operatively for pain control as he will likely need acute rehab vs SNF as he will likely have non- weightbearing status for 6 weeks Justifications for Admission Other Justification Left ankle fracture PHANI ZEPEDA MD Oct 31, 2021 08:59
[2021-10-31] MEDS ORDERED: BUPIVACAINE MPF 0.25% 30 ML VIAL. ONE (09:32)
[2021-10-31] MEDS ORDERED: ONDANSETRON PF 4 MG/2 ML VIAL. ONE (10:02)
[2021-10-31] MEDS ORDERED: DEXAMETHASONE SOD PHOS 4 MG/ML VIAL ONE (10:02)
[2021-10-31] MEDS ORDERED: ePHEDrine PF IN SALINE 50 MG/10 ML SYRINGE. IV ONE (10:03)
[2021-10-31] MEDS ORDERED: ceFAZolin SODIUM IV Push 1 GM VIAL. IVP ONE (13:31)
--- NOTE | 2021-10-31 15:04 | PDOC4 ---
OPERATIVE NOTE Date: Date: Oct 31, 2021 Pre-Op Diagnosis: PT tendinitis, deltoid ligament insufficiency, pes planus, externally reduced syndesmotic joint, Left Post-Op Diagnosis: PT tendinitis, deltoid ligament insufficiency, pes planus, externally reduced syndesmotic joint, Left Procedure Performed: First tarsometatarsal joint fusion, deltoid ligament repair, PT tendon repair, syndesmotic joint stabilization, hardware removal, left Surgeon: Abigail Christianson DPM Anesthesia Type: General Blood Loss: 50 cc Specimans Obtained: None Findings: PT tendon was found with mild to moderate adipose tissue replacement/degeneration with a partial split tear at the posterior medial malleolus without significant hypertrophy or structural insufficiency. The medial ankle gutter was found with significant scar tissue including previously avulsed a small osseous fragments. After medial gutter decompression, the talus was able to derotate better and sits in a near anatomical mortise position. Preoperative contralateral, right ankle x-ray was taken in the OR. The fibula was found sitting more posterior relative to the talus with the anterior fibular margin bisecting tibial plafond. This remarked the uninjured ankle also had externally rotated fibula relative to the tibial incisure at baseline. Complications: None Operative Note: Indication: Patient initially presented to my clinic with an inadequately reduced left bimalleolar ankle fracture with significant medial gutter widening. Coupled with significant medial and distal ankle serous blisters, the index procedure consisted of fibula fracture reduction and indirect medial malleolar repair with syndesmotic screws. Patient was progressing well from the ankle pain and instability but started noticing 4 out of 10 pain along the PT tendon medially. Further weightbearing x-ray of the foot and ankle remarked moderately externally rotated fibula at the ankle mortise and slight valgus talar tilt due to the fibula position. In addition, there was significant forefoot varus or medial column instability contributing to additional subtalar joint pronation. Otherwise, the foot x-ray was insignificant for cc joint abduction angle, TN uncoverage, or collapsed arch height. There was no significant ankle equinus. Then the decision was made to revise the syndesmotic joint reduction/repair by taking out the screws and replacing them with syndesmotic Endobutton to allow the flexibility. Also to further address the medial gutter diastases and talar tilt, I recommended PT tendon repair, deltoid ligament, including ATFL and TCL, tightening and reconstruction to derotate the talus within ankle mortise. I also recommended first TMT arthrodesis to stabilize the medial column more so than a bunion correction, to prevent excessive subtalar joint pronation. At baseline, the heel sits slightly in a varus a position nd additional medializing calcaneal osteotomy was not recommended. Patient verbalized understanding consented for the procedure. Under mild sedation, patient was brought into the operating room and placed on operating table in the supine position. A formal timeout was carried out to confirm patient's identity, procedure and procedure site. Following IV anesthesia and preoperative antibiotics, a well-padded left thigh tourniquet was applied. The left lower extremity was then prepped, draped and scrubbed using aseptic techniques. The left lower extremity was then exsanguinated and the pressure was set at 250 mmHg. Before the surgical left lower extremity was scrubbed and draped, intraoperative x-ray was used to visualize and remarked a baseline of fibula position relative to the tibia within the incisure. A lateral view of the right ankle remarked the anterior margin of the fibula bisected the distal tibial plafond. So at baseline, the fibula was externally rotated relative to the tibia on the uninjured right ankle. After the left lower extremity was prepped and draped, the attention was directed to the lateral fibula near the syndesmotic screw sites. A linear i ncision was made and carried deep with a combination of sharp and blunt dissection with care to protect and retract all the neurovascular bundles. After the syndesmotic screws were visualized, they were removed in toto without any breakage. The surgical site was irrigated and covered with a wet Ray-Juan David. The attention was directed to the medial malleolus. A curvilinear incision was made over the dorsal aspect of the PT tendon extending from the posterior distal tibia to the proximal navicula. The incision was carried deep with a combination of sharp and blunt dissection with care to protect and retract all the neurovascular bundle. Upon deeper blunt dissection, the medial ankle capsule was hypertrophied. The medial gutter was impacted with scar tissue, previously avulsed osseous fragments. After medial gutter decompression, the talus was able to rotate medially and close off the medial diastases. Then the attention was directed to the PT tendon where a medial capsulotomy was performed and remarked slightly degenerated PT tendon with a partial plit tear at the posterior distal medial malleolus. The degenerated tendon was excised and the split tear was repaired with 2-0 FiberWire. The sustentaculum camille was identified with a K wire and confirmed on lateral and axial view of the foot. After the medial gutter was adequately decompressed, the attention was redirected into the lateral fibula for syndesmotic joint reduction. Using a sharp reduction clamp, the fibula was found to difficulty with internal rotation reduction. Then the decision was made to make a stab incision measures approximately 1 cm anterior to the distal syndesmotic joint. Incision was carried deep to expose the distal tib-fib capsule/syndesmotic joint. Care was taken to protect and retract all the neurovascular bundles. The proximal and posterior syndesmotic scar tissue was released carefully with a small osteotome. And subsequent fibular reduction with internal rotation within the insicure was noted. AP view of the ankle remarked reduced medial gutter diastases, less valgus talar tilt. Lateral view of the ankle remarked the anterior margin of the distal fibula bisected the distal tibial plafond, comparable to the contralateral side. Then 2x Arthrex tight ropes were placed through the same fibular lock holes intended for the syndesmotic repair, and tightened to physiological tension. Post reduction x-ray noted adequate ankle mortise reduction and tight rope placement. Stress test at the AITFL was insignificant for instability. Therefore, no further TFL ligament stabilization was needed. Then the attention was redirected to the distal medial malleolus where a 4.75 mm swivel lock was placed into the intracanalicular groove but extra-articular to the ankle joint with the intraoperative x-ray guidance. 2 suture arms were anchored to the anterior lateral talar body, extra-articular, with a 3.5 mm swivel lock; and to the sustentaculum camille with a 3.5 mm swivel lock after x-ray confirmation and soft tissue retraction. Physiological tension to both ATTL and TCL was achieved with ankle held in near neutral dorsiflexion and slight eversion. At this time, stress test across the subtalar joint was insignificant for overpronation or overtightening. The PT tendon sheath was repaired with 2-0 Vicryl. The remaining of the superficial deltoid ligament was repaired with a combination of 2-0 Vicryl and 2-0 FiberWire with ankle held neutral and slightly everted. Again intraoperative x-ray remarked significantly reduced medial gutter diastase s and free from osseous avulsion fragments. There was a slight valgus talar tilt but improved significantly with ankle joint dorsiflexion during simulated weightbearing. The fibula position within the incicure was comparable to the contralateral uninjured ankle. The fibula remain out to length without any shortening. All the surgical sites were irrigated with copious saline solutions and closed in layers with 4-0 Monocryl and 4-0 nylon. At this time, the tourniquet was deflated at 2-hour andre. And hemostasis was achieved with gauze, Coban compression. After 20 minutes of tourniquet deflation, the left lower extremity was reex sanguinated with pressure set at 250 mmHg. Then the attention was directed to the dorsomedial aspect of the first TMT where a linear incision was made just medial to the EHL. The incision was carried deep with a combination of sharp and blunt dissection with care to protect and retract all the neurovascular bundles. The tibialis anterior tendon and EHL were mobilized after retinaculum release to expose the first TMT capsule. A transverse capsulotomy was carried out with care to protect the lateral neurovascular bundle. The joint was visualized with a smooth laminar general store manager and joint prep was carried out with a combination of osteotome, curette. Subchondral drilling was achieved with a combination of 2 oh millimeter drill bit and a small osteotome. Healthy subchondral bleeding was noted. To further assist first TMT reduction, a percutaneous lateral suspensory fibular sesamoid release was performed with a Laona blade at the level of the lateral first TMT under x-ray guidance. Afterwards, adequate mobilization of the fibula sesamoid was noted on AP x-ray. Then using a windlass maneuver, the first TMT was reduced and temporarily stabilized with two 0.064 inch K wires. Intraoperative x-ray remarked adequate joint apposition, plantar translation of the first metatarsal and stabilization of the medial column. Although, the first intermetatarsal angle was not reduced under 8 degrees. Additional distal osteotomy could have been performed for bunion but the goal of the first TMT surgery was to stabilize the medial column to prevent subtalar joint overpronation. Then a 4.0 mm partially-threaded screw was traversed from dorsal distal first metatarsal to the base of the plantar first cuneiform. And then the construct was reinforced with a Lizandro Luna plate using a combination of 3.5 and a 3.0 millimeter screws. The fusion site was further augmented with 1 cc of DBM. At this time, the first TMT was noted well opposed with adequate hardware fixation without any gapping or instability. After saline solution irrigation, the surgical site was closed in layers with 3-0 Vicryl, 4-0 Monocryl and 4 nylon. 20 cc of 0.25% Marcaine plain was infiltrated into the surgical sites for postoperative pain control. The surgical sites were dressed with jumpstart from Arthrex, 4 x 4 gauze. The left lower extremity was immobilized in a well padded Ac compression splint with ankle held near 90 degrees. Tourniquet was deflated and adequate digital perfusion was noted. Patient tolerated anesthesia and procedure well with vital signs stable and neurovascular status intact. Patient was then transferred to PACU for continuous recovery and additional foot x-ray. The x-ray for the ankle was saved from the mini C arm intraoperatively. ABIGAIL CHRISTIANSON DPM Oct 31, 2021 15:04
[2021-10-31] MEDS ORDERED: ACETAMINOPHEN 325 MG TABLET. PO ONE (15:30)
[2021-10-31] MEDS ORDERED: MORPHINE SULFATE 2 MG/ML INJ. ONE (15:40)
[2021-10-31] MEDS: MORPHINE SULFATE 2 MG/ML INJ. IVP PRN ×2 (15:43→15:55)
[2021-10-31] MEDS: fentaNYL PF VIAL 100 MCG/2 ML VIAL IVP PRN ×2 (15:43→15:52)
[2021-10-31] MEDS ORDERED: oxyCODONE/APAP 5/325 1 TAB TABLET PO ONE (15:45)
[2021-10-31] MEDS ORDERED: MAGNESIUM HYDROXIDE 2,400 MG/30 ML ORAL.SUSP. PO PRN (16:00)
[2021-10-31] MEDS ORDERED: MORPHINE SULFATE 2 MG/ML INJ. IV PRN (16:00)
[2021-10-31] MEDS ORDERED: CALCIUM CARBONATE 500 MG TAB.CHEW PO PRN (16:00)
[2021-10-31] MEDS ORDERED: HYDROmorphone 2 MG/ML INJ. ONE (16:09)
[2021-10-31] MEDS ORDERED: PROCHLORPERAZINE 10 MG/2 ML VIAL. ONE (16:09)
--- NOTE | 2021-10-31 16:10 | RAD ---
XR FOOT_LEFT 3 VIEWS 10/31/2021 3:25 PM INDICATION: Postoperative COMPARISON: Left foot radiograph to 322 TECHNIQUE: 3 views of the left foot are provided. FINDINGS/ IMPRESSION: Evaluation is degraded by overlapping cast material. There is arthrodesis of the first tarsometatars al joint and medial and middle cuneiform. No lucency surrounding the hardware. Mild hallux valgus def ormity. Hardware within the tibia and fibula is only partially profiled. Electronically signed by: Leigh Ann Mckeon MD (10/31/2021 4:08 PM) [id number]
[2021-10-31] MEDS: PROCHLORPERAZINE 10 MG/2 ML VIAL. IVP PRN ×2 (16:11→16:19)
[2021-10-31] MEDS: HYDROmorphone 2 MG/ML INJ. IVP PRN ×4 (16:12→16:45)
[2021-10-31] MEDS: PSYLLIUM HUSK (SUGAR FREE) 1 PKT PACKET PO SCH (21:07)
[2021-10-31] MEDS: SENNOSIDES/DOCUSATE 8.6/50MG TABLET. PO SCH (21:07)
[2021-10-31] MEDS: HYDROcodone/APAP 5/325MG 1 TAB TABLET PO PRN (22:58)
[2021-11-01 03:00] VITALS: BP 116/69
[2021-11-01] MEDS: HYDROcodone/APAP 5/325MG 1 TAB TABLET PO PRN ×5 (04:20→20:17)
[2021-11-01 06:48] LABS: BASO % 0 % (0-3); EOS % 0 % (0-3); HEMATOCRIT 31.7 % (39.0-53.0); HEMOGLOBIN 10.6 g/dL (13.0-17.5); LYMPH # 1.2 x10^3/uL (1.0-4.8); LYMPH % 16 % (24-48); MEAN CORPUSCULAR HEMOGLOBIN 27 pg (25-35); MEAN CORPUSCULAR HGB CONC 34 g/dL (31-37); MEAN CORPUSCULAR VOLUME 79 fL (79-100); MONO # 0.7 x10^3/uL (0.0-1.1); MONO % 10 % (0-9); NEUT # 5.3 x10^3/uL (1.8-7.7); NEUT % 74 % (31-73); PLATELET COUNT 162 x10^3/uL (140-400); RED BLOOD COUNT 4.01 x10^6/uL (4.30-5.70); RED CELL DISTRIBUTION WIDTH 14.9 % (11.5-14.5); WHITE BLOOD COUNT 7.2 x10^3/uL (4.0-11.0)
[2021-11-01 07:15] VITALS: BP 111/54
[2021-11-01 07:20] LABS: ALBUMIN 3.1 g/dL (3.4-5.0); ALBUMIN/GLOBULIN RATIO 1.1 (1.0-1.7); CREATININE 0.7 mg/dL (0.7-1.3); GFR 112.1; POTASSIUM 3.7 mmol/L (3.5-5.1); TOTAL BILIRUBIN 0.5 mg/dL (0.2-1.0)
[2021-11-01] MEDS: SENNOSIDES/DOCUSATE 8.6/50MG TABLET. PO SCH ×2 (08:30→20:16)
[2021-11-01] MEDS: ENOXAPARIN 40 MG/0.4 ML SYRINGE. SQ SCH (08:30)
[2021-11-01 11:08] VITALS: BP 131/61
--- NOTE | 2021-11-01 13:43 | PDOC ---
[facility] PROGRESS NOTE Date of Service DOS: DATE: 11/01/21 TIME: 13:40 Chief Complaint Chief Complaint A/P: Left ankle pain -s/p ORIF July 2021. 10/31/21 - First tarsometatarsal joint fusion, deltoid ligament repair, PT tendon repair, syndesmotic joint stabilization, hardware removal Unintentional weight loss - just had repeat colonoscopy [address] Elder S/p Gastric Bypass 2003 Alcohol use disorder - no history of admission for withdrawal. Will place on CIWA post-operatively. FEN - Regular diet PPX - lovenox FULL CODE Dispo - will likely need acute rehab vs SNF as he will likely have non- weightbearing status for 6 weeks History of Present Illness History of Present Illness Mr Rees is a 66 yo male with PMHx s/p gastric bypass, s/p bilateral hip replacement, and recent complicated ankle fracture in June 2021 status post repair 07/17/2021 who comes in with persistent left ankle pain and instability. Being seen today for preoperative physical for left ankle hardware removal deltoid ligament repair spring ligament repair first tarsometatarsal joint fusion possible flexor digitorum longus transfer. He is s/p gastric bypass in 2003, bilateral hip placements in 2004. Patient is Covid vaccinated with DNA13 vaccine. Status post ORIF left ankle 07/17/2021. He is lost 30 pounds since his ankle surgery he and his think due to pain. Due to his weight loss Dr. Calixto referred him to Dr. Johsnon and he had a colonoscopy approximately 2 weeks ago. Seen bedside. Had some vagal response with IV insertion this morning. No recent travel or sick contacts. Other than above weight loss and left ankle persistent pain and development of flatfoot he has no other complaints. 06/2021 EKG Sinus rhythm 59 bpm, left axis deviation, first-degree AV block with NE interval 202, QTc 46, T wave inversion lead III and aVF, no ST elevation or ST depression Rapid covid 19 negative, no other labs at this time. 11/01: Hb 10.6, labs otherwise stable albumin 3.1. Feels like his pain is reasonably controlled. He is asking not to do rehabilitation at the same facility he did previously. No chest pain or shortness of breath Vitals/I&O Vitals/I&O: Vital Signs Date Time Temp Pulse Resp B/P (MAP) Pulse Ox O2 Delivery O2 Flow Rate FiO2 11/01/21 12:32 Room Air 11/01/21 11:08 98.5 64 18 131/61 (84) 97 2.0 98.5 I & O 10/31/21 10/31/21 11/01/21 15:00 23:00 07:00 Intake Total 50 ml 1670 ml 900 ml Output Total 50 ml 600 ml Balance 50 ml 1620 ml 300 ml Physical Exam General: Alert, Oriented X3, Cooperative, No acute distress Lungs: Clear Abdomen: Normal bowel sounds, Soft, No tenderness, No hepatosplenomegaly, No masses Extremities: No clubbing, No cyanosis, No edema, Normal pulses, Other (left ankle tender and swollen) Skin: No rashes, No breakdown, No significant lesion Labs Labs: Laboratory Tests Test 11/01/21 06:25 White Blood Count 7.2 x10^3/uL (4.0-11.0) Red Blood Count 4.01 x10^6/uL (4.30-5.70) Hemoglobin 10.6 g/dL (13.0-17.5) Hematocrit 31.7 % (39.0-53.0) Mean Corpuscular Volume 79 fL (79-100) Mean Corpuscular Hemoglobin 27 pg (25-35) Mean Corpuscular Hemoglobin Concent 34 g/dL (31-37) Red Cell Distribution Width 14.9 % (11.5-14.5) Platelet Count 162 x10^3/uL (140-400) Neutrophils (%) (Auto) 74 % (31-73) Lymphocytes (%) (Auto) 16 % (24-48) Monocytes (%) (Auto) 10 % (0-9) Eosinophils (%) (Auto) 0 % (0-3) Basophils (%) (Auto) 0 % (0-3) Neutrophils # (Auto) 5.3 x10^3/uL (1.8-7.7) Lymphocytes # (Auto) 1.2 x10^3/uL (1.0-4.8) Monocytes # (Auto) 0.7 x10^3/uL (0.0-1.1) Eosinophils # (Auto) 0.0 x10^3/uL (0.0-0.7) Basophils # (Auto) 0.0 x10^3/uL (0.0-0.2) Sodium Level 143 mmol/L (136-145) Potassium Level 3.7 mmol/L (3.5-5.1) Chloride Level 106 mmol/L (98-107) Carbon Dioxide Level 29 mmol/L (21-32) Anion Gap 8 (6-14) Blood Urea Nitrogen 9 mg/dL (8-26) Creatinine 0.7 mg/dL (0.7-1.3) Estimated GFR (Cockcroft-Gault) 112.1 BUN/Creatinine Ratio 13 (6-20) Glucose Level 96 mg/dL (70-99) Calcium Level 8.0 mg/dL (8.5-10.1) Total Bilirubin 0.5 mg/dL (0.2-1.0) Aspartate Amino Transf (AST/SGOT) 12 U/L (15-37) Alanine Aminotransferase (ALT/SGPT) 25 U/L (16-63) Alkaline Phosphatase 56 U/L (46-116) Total Protein 6.0 g/dL (6.4-8.2) Albumin 3.1 g/dL (3.4-5.0) Albumin/Globulin Ratio 1.1 (1.0-1.7) Comment Review of Relevant I have reviewed the following items andre (where applicable) has been applied. Medications: Current Medications Medications (Trade) Dose Ordered Sig/Obdulia Route PRN Reason Start Time Stop Time Status Last Admin Dose Admin Acetaminophen (Tylenol) 650 mg 1X ONCE PO 10/31/21 15:30 10/31/21 15:31 DC 10/31/21 16:08 Oxycodone/ Acetaminophen (Percocet 5/325) 1 tab 1X ONCE PO 10/31/21 15:45 10/31/21 15:46 DC 10/31/21 16:08 Acetaminophen/ Hydrocodone Bitart (Lortab 5/325) 1 tab PRN Q4HRS PRN PO MILD PAIN 1-3 10/31/21 16:00 11/01/21 12:02 Acetaminophen/ Hydrocodone Bitart (Lortab 5/325) 2 tab PRN Q4HRS PRN PO MODERATE PAIN, SEVERE PAIN 10/31/21 16:00 11/01/21 04:20 Senna/Docusate Sodium (Senna Plus) 1 tab BID PO 10/31/21 21:00 11/01/21 08:30 Enoxaparin Sodium (Lovenox 40mg Syringe) 40 mg Q24H SQ 11/01/21 09:00 11/01/21 08:30 Cefazolin Sodium/ Dextrose 50 ml @ 100 mls/hr 1X ONCE IV 10/31/21 18:30 10/31/21 18:59 DC 10/31/21 21:07 Justifications for Admission General Conditions Other justification for admit: Intractable foot pain, [id number] Other Justification Left ankle fracture PHANI ZEPEDA MD Nov 01, 2021 13:43
[2021-11-01] MEDS ORDERED: cloNIDine HCL 0.1 MG TABLET PO PRN (13:45)
[2021-11-01] MEDS: FOLIC ACID 1 MG TABLET. PO SCH (14:00)
--- NOTE | 2021-11-01 15:00 | NUR ---
SS following for discharge planning. SS reviewed pt chart and discussed with pt RN. Pt is from home with spouse and is currently on room air. COVID19 negative. Surgery on 10/31/2021. PT/OT ordered. OT recommended home independent. SS will continue to follow for discharge planning.
[2021-11-01 15:15] VITALS: BP 107/66
[2021-11-01] MEDS: MULTIVITAMIN with MINERAL TABLET. PO SCH (16:08)
[2021-11-01] MEDS: THIAMINE 100 MG TABLET. PO SCH (16:08)
[2021-11-01] MEDS ORDERED: traMADol 50 MG TABLET PO PRN (17:45)
--- NOTE | 2021-11-01 17:51 | PDOC ---
PROGRESS NOTES Date of Service DATE: 11/01/21 TIME: 17:50 Subjective Subjective [DOS 10/31] Left syndesmotic joint stabilization, hardware removal, deltoid ligament repair, PT tendon repair, first TMT fusion Patient was seen resting comfortably in bed with foot elevated and near the heart level. Patient relates episodic sharp pain to the dorsal foot and ankle, upwards to 6 out of 10. Otherwise, he denies any persistent numbness or tingl ing sensation. The surgical dressing has been kept clean and dry without any strikethrough. Patient further denies any constitutional symptoms. Patient has not yet worked with PT. S/p two doses of 2 g Ancef after surgery without any intolerance or adverse reaction. Objective Objective Vital Signs Date Time Temp Pulse Resp B/P (MAP) Pulse Ox O2 Delivery O2 Flow Rate FiO2 11/01/21 16:07 Room Air 11/01/21 15:15 97.8 84 20 107/66 (80) 97 2.0 97.8 Intake and Output 11/01/21 07:00 Intake Total 2620 ml Output Total 650 ml Balance 1970 ml Intake Oral 1020 ml IV Total 1600 ml Output Urine Total 600 ml Estimated Blood Loss 50 ml Physical Exam Physical Exam General: AOx3, pleasant without distress Left lower extremity focused Dermatology: -Postoperative splint and dressing are in place without any strikethrough Vascular: -Foot is warm to touch -CFT less than 5 seconds Neurology: -Intact light touch sensation to the level of 1 through 5 Musculoskeletal: -Able to move digits 1 through 5 -Calf is soft and nontender -Muscle strength and joint range of motion was deferred Assessment Assessment S/p [DOS 10/31] left syndesmotic joint stabilization, hardware removal, deltoid ligament repair, PT tendon repair, first TMT fusion and first intercuneiform stabilization -Keep the postoperative dressing and splint clean, dry and intact -Weightbearing restriction: Strict nonweightbearing to the left lower extremity -Physical therapy: Help with sit, pivot and transfer with any gait aid -Nurse communication: - Elevate the surgical foot with at least two pillows behind the calf so that the heel is floated with toes elevated to the level of the heart, per tolerance 45 min/h -Ice behind the knee 15 mins/h for pain as needed -Pain management: Scheduled Tylenol, gabapentin, as needed Holbrook -DVT prophylaxis: Currently Lovenox -Encouraged compliance with incentive spirometry Dispo: Home discharge pending PT progression and pain management. Patient may likely go home on 11/03. I have prescribed postoperative pain medicine including Holbrook, gabapentin; DVT prophylaxis with Lovenox; bone health with vitamin D3. Our office will call patient for postoperative appointment. Comment Review of Relevant I have reviewed the following items andre (where applicable) has been applied. Labs Laboratory Tests Test 10/31/21 07:48 11/01/21 06:25 POC SARS CoV-2 Antigen Negative (NEGATIVE) White Blood Count 7.2 x10^3/uL (4.0-11.0) Red Blood Count 4.01 x10^6/uL (4.30-5.70) Hemoglobin 10.6 g/dL (13.0-17.5) Hematocrit 31.7 % (39.0-53.0) Mean Corpuscular Volume 79 fL (79-100) Mean Corpuscular Hemoglobin 27 pg (25-35) Mean Corpuscular Hemoglobin Concent 34 g/dL (31-37) Red Cell Distribution Width 14.9 % (11.5-14.5) Platelet Count 162 x10^3/uL (140-400) Neutrophils (%) (Auto) 74 % (31-73) Lymphocytes (%) (Auto) 16 % (24-48) Monocytes (%) (Auto) 10 % (0-9) Eosinophils (%) (Auto) 0 % (0-3) Basophils (%) (Auto) 0 % (0-3) Neutrophils # (Auto) 5.3 x10^3/uL (1.8-7.7) Lymphocytes # (Auto) 1.2 x10^3/uL (1.0-4.8) Monocytes # (Auto) 0.7 x10^3/uL (0.0-1.1) Eosinophils # (Auto) 0.0 x10^3/uL (0.0-0.7) Basophils # (Auto) 0.0 x10^3/uL (0.0-0.2) Sodium Level 143 mmol/L (136-145) Potassium Level 3.7 mmol/L (3.5-5.1) Chloride Level 106 mmol/L (98-107) Carbon Dioxide Level 29 mmol/L (21-32) Anion Gap 8 (6-14) Blood Urea Nitrogen 9 mg/dL (8-26) Creatinine 0.7 mg/dL (0.7-1.3) Estimated GFR (Cockcroft-Gault) 112.1 BUN/Creatinine Ratio 13 (6-20) Glucose Level 96 mg/dL (70-99) Calcium Level 8.0 mg/dL (8.5-10.1) Total Bilirubin 0.5 mg/dL (0.2-1.0) Aspartate Amino Transf (AST/SGOT) 12 U/L (15-37) Alanine Aminotransferase (ALT/SGPT) 25 U/L (16-63) Alkaline Phosphatase 56 U/L (46-116) Total Protein 6.0 g/dL (6.4-8.2) Albumin 3.1 g/dL (3.4-5.0) Albumin/Globulin Ratio 1.1 (1.0-1.7) Laboratory Tests Test 11/01/21 06:25 White Blood Count 7.2 x10^3/uL (4.0-11.0) Red Blood Count 4.01 x10^6/uL (4.30-5.70) Hemoglobin 10.6 g/dL (13.0-17.5) Hematocrit 31.7 % (39.0-53.0) Mean Corpuscular Volume 79 fL (79-100) Mean Corpuscular Hemoglobin 27 pg (25-35) Mean Corpuscular Hemoglobin Concent 34 g/dL (31-37) Red Cell Distribution Width 14.9 % (11.5-14.5) Platelet Count 162 x10^3/uL (140-400) Neutrophils (%) (Auto) 74 % (31-73) Lymphocytes (%) (Auto) 16 % (24-48) Monocytes (%) (Auto) 10 % (0-9) Eosinophils (%) (Auto) 0 % (0-3) Basophils (%) (Auto) 0 % (0-3) Neutrophils # (Auto) 5.3 x10^3/uL (1.8-7.7) Lymphocytes # (Auto) 1.2 x10^3/uL (1.0-4.8) Monocytes # (Auto) 0.7 x10^3/uL (0.0-1.1) Eosinophils # (Auto) 0.0 x10^3/uL (0.0-0.7) Basophils # (Auto) 0.0 x10^3/uL (0.0-0.2) Sodium Level 143 mmol/L (136-145) Potassium Level 3.7 mmol/L (3.5-5.1) Chloride Level 106 mmol/L (98-107) Carbon Dioxide Level 29 mmol/L (21-32) Anion Gap 8 (6-14) Blood Urea Nitrogen 9 mg/dL (8-26) Creatinine 0.7 mg/dL (0.7-1.3) Estimated GFR (Cockcroft-Gault) 112.1 BUN/Creatinine Ratio 13 (6-20) Glucose Level 96 mg/dL (70-99) Calcium Level 8.0 mg/dL (8.5-10.1) Total Bilirubin 0.5 mg/dL (0.2-1.0) Aspartate Amino Transf (AST/SGOT) 12 U/L (15-37) Alanine Aminotransferase (ALT/SGPT) 25 U/L (16-63) Alkaline Phosphatase 56 U/L (46-116) Total Protein 6.0 g/dL (6.4-8.2) Albumin 3.1 g/dL (3.4-5.0) Albumin/Globulin Ratio 1.1 (1.0-1.7) Medications Current Medications Fentanyl Citrate (Fentanyl 2ml Vial) 25 mcg PRN Q5MIN PRN IVP MILD PAIN 1-3; Start 10/31/21 at 06:00; Stop 11/01/21 at 05:59; Status DC Fentanyl Citrate (Fentanyl 2ml Vial) 50 mcg PRN Q5MIN PRN IVP MODERATE PAIN 4-6 Last administered on 10/31/21at 15:52; Start 10/31/21 at 06:00; Stop 11/01/21 at 05:59; Status DC Morphine Sulfate (Morphine Sulfate) 1 mg PRN Q10MIN PRN IVP SEVERE PAIN 7-10 Last administered on 10/31/21at 15:55; Start 10/31/21 at 06:00; Stop 11/01/21 at 05:59; Status DC Ringer's Solution 1,000 ml @ 30 mls/hr Q24H IV Last administered on 10/31/21at 08:06; Start 10/31/21 at 06:00; Stop 10/31/21 at 17:59; Status DC Hydromorphone HCl (Dilaudid) 0.5 mg PRN Q10MIN PRN IVP SEVERE PAIN 7-10, 2nd CHOICE Last administered on 10/31/21at 16:45; Start 10/31/21 at 06:00; Stop 11/01/21 at 05:59; Status DC Prochlorperazine Edisylate (Compazine) 5 mg PACU PRN PRN IVP NAUSEA, MRX1 Last administered on 10/31/21at 16:19; Start 10/31/21 at 06:00; Stop 11/01/21 at 05:59; Status DC Cefazolin Sodium/ Dextrose 50 ml @ 100 mls/hr 1X PREOP PRN IV PRIOR TO PROCEDURE Last administered on 10/31/21at 09:45; Start 10/31/21 at 06:00; Stop 10/31/21 at 18:00; Status DC Propofol (Diprivan) 200 mg STK-MED ONCE IV ; Start 10/31/21 at 08:16; Stop 10/31/21 at 08:17; Status DC Lidocaine HCl (Xylocaine-Mpf 1% 5ml Vial) 5 ml STK-MED ONCE .ROUTE ; Start 10/31/21 at 08:16; Stop 10/31/21 at 08:17; Status DC Phenylephrine HCl (PHENYLEPHRINE in 0.9% NACL PF) 1 mg STK-MED ONCE IV ; Start 10/31/21 at 08:17; Stop 10/31/21 at 08:17; Status DC Fentanyl Citrate (Fentanyl 2ml Vial) 100 mcg STK-MED ONCE .ROUTE ; Start 10/31/21 at 08:17; Stop 10/31/21 at 08:17; Status DC Bupivacaine HCl (Sensorcaine Mpf 0.25%) 30 ml STK-MED ONCE .ROUTE Last administered on 10/31/21at 10:26; Start 10/31/21 at 09:32; Stop 10/31/21 at 09:33; Status DC Ondansetron HCl (Zofran) 4 mg STK-MED ONCE .ROUTE ; Start 10/31/21 at 10:02; Stop 10/31/21 at 10:02; Status DC Dexamethasone Sodium Phosphate (Decadron) 4 mg STK-MED ONCE .ROUTE ; Start 10/31/21 at 10:02; Stop 10/31/21 at 10:03; Status DC Ephedrine Sulfate (ePHEDrine PF IN SALINE SYRINGE) 50 mg STK-MED ONCE IV ; Start 10/31/21 at 10:03; Stop 10/31/21 at 10:03; Status DC Fentanyl Citrate (Fentanyl 2ml Vial) 100 mcg STK-MED ONCE .ROUTE ; Start 10/31/21 at 10:22; Stop 10/31/21 at 10:22; Status DC Fentanyl Citrate (Fentanyl 2ml Vial) 100 mcg STK-MED ONCE .ROUTE ; Start 10/31/21 at 11:04; Stop 10/31/21 at 11:04; Status DC Cefazolin Sodium (Ancef) 1 gm STK-MED ONCE IVP ; Start 10/31/21 at 13:31; Stop 10/31/21 at 13:32; Status DC Fentanyl Citrate (Fentanyl 2ml Vial) 100 mcg STK-MED ONCE .ROUTE ; Start 10/31/21 at 14:20; Stop 10/31/21 at 14:21; Status DC Acetaminophen (Tylenol) 650 mg 1X ONCE PO Last administered on 10/31/21at 16:08; Start 10/31/21 at 15:30; Stop 10/31/21 at 15:31; Status DC Oxycodone/ Acetaminophen (Percocet 5/325) 1 tab 1X ONCE PO Last administered on 10/31/21at 16:08; Start 10/31/21 at 15:45; Stop 10/31/21 at 15:46; Status DC Fentanyl Citrate (Fentanyl 2ml Vial) 100 mcg STK-MED ONCE .ROUTE ; Start 10/31/21 at 15:39; Stop 10/31/21 at 15:40; Status DC Morphine Sulfate (Morphine Sulfate) 2 mg STK-MED ONCE .ROUTE ; Start 10/31/21 at 15:40; Stop 10/31/21 at 15:40; Status DC Calcium Carbonate/ Glycine (Tums) 500 mg PRN Q3HRS PRN PO UPSET STOMACH; Start 10/31/21 at 16:00 Morphine Sulfate (Morphine Sulfate) 1 mg PRN Q1HR PRN IV PAIN; Start 10/31/21 at 16:00 Acetaminophen/ Hydrocodone Bitart (Lortab 5/325) 1 tab PRN Q4HRS PRN PO MILD PAIN 1-3 Last administered on 11/01/21at 12:02; Start 10/31/21 at 16:00 Acetaminophen/ Hydrocodone Bitart (Lortab 5/325) 2 tab PRN Q4HRS PRN PO MODERATE PAIN, SEVERE PAIN Last administered on 11/01/21at 16:07; Start 10/31/21 at 16:00 Senna/Docusate Sodium (Senna Plus) 1 tab BID PO Last administered on 11/01/21at 08:30; Start 10/31/21 at 21:00 Magnesium Hydroxide (Milk Of Magnesia) 2,400 mg PRN Q12HR PRN PO CONSTIPATION; Start 10/31/21 at 16:00 Enoxaparin Sodium (Lovenox 40mg Syringe) 40 mg Q24H SQ Last administered on 11/01/21at 08:30; Start 11/01/21 at 09:00 Psyllium Hydrophilic Mucilloid (Metamucil Fiber Packet) 1 pkt QHS PO ; Start 10/31/21 at 21:00 Hydromorphone HCl (Dilaudid) 2 mg STK-MED ONCE .ROUTE ; Start 10/31/21 at 16:09; Stop 10/31/21 at 16:09; Status DC Prochlorperazine Edisylate (Compazine) 10 mg STK-MED ONCE .ROUTE ; Start 10/31/21 at 16:09; Stop 10/31/21 at 16:09; Status DC Cefazolin Sodium/ Dextrose 50 ml @ 100 mls/hr 1X ONCE IV Last administered on 10/31/21at 21:07; Start 10/31/21 at 18:30; Stop 10/31/21 at 18:59; Status DC Multivitamins (Thera M Plus) 1 tab DAILY PO Last administered on 11/01/21at 16:08; Start 11/01/21 at 14:00 Folic Acid (Folic Acid) 1 mg DAILY PO ; Start 11/01/21 at 14:00 Thiamine Mononitrate (Vitamin B-1) 100 mg DAILY PO Last administered on 11/01/21at 16:08; Start 11/01/21 at 14:00 Lorazepam (Ativan) 1 mg PRN Q1HR PRN PO For CIWA 8-14; Start 11/01/21 at 13:45 Lorazepam (Ativan) 2 mg PRN Q1HR PRN PO For CIWA 15 or greater; Start 11/01/21 at 13:45 Lorazepam (Ativan Inj) 1 mg PRN Q1HR PRN IV For CIWA 8-14; Start 11/01/21 at 13:45 Lorazepam (Ativan Inj) 2 mg PRN Q1HR PRN IV For CIWA 15 or greater; Start 11/01/21 at 13:45 Clonidine HCl (Catapres) 0.1 mg PRN Q1HR PRN PO SBP > 180 or DBP > 100, MRX3; Start 11/01/21 at 13:45 Active Scripts Active Hydrocodone-Apap 5-325 (Hydrocodone Bit/Acetaminophen) 1 Tab Tablet 1 Tab PO PRN Q6HRS PRN One-Daily Multi-Vitamin (Multivitamin) 1 Each Tablet 2 Tab PO DAILY 30 Days Vitamin D3 (Cholecalciferol (Vitamin D3)) 1,250 Mcg Capsule 1,250 Mcg PO WEEKLY 60 Days Nutritional Drink Mix (Protein Supplement) 420 Gm Powder 420 Gm PO DAILY 30 Days Magnesium Citrate 100 Mg Tablet 100 Mg PO BID 60 Days Zinc Sulfate 50 Mg Tablet 50 Mg PO DAILY 60 Days Percocet 5-325 Mg Tablet (Oxycodone/Acetaminophen) 1 Each Tablet 1 Tab PO PRN TID PRN 14 Days Reported Tylenol (Acetaminophen) 325 Mg Tablet 325 Mg PO PRN PRN Vitals/I & O Vital Sign - Last 24 Hours 10/31/21 10/31/21 10/31/21 10/31/21 17:56 18:03 18:33 19:00 Temp 98.1 98.1 Pulse 82 79 85 Resp 18 18 14 B/P (MAP) 87/56 (66) 105/57 (73) 99/61 (74) Pulse Ox 92 93 98 O2 Delivery Nasal Cannula Nasal Cannula Nasal Cannula Nasal Cannula O2 Flow Rate 2.0 2.0 2.0 2.0 10/31/21 10/31/21 10/31/21 10/31/21 20:03 20:18 21:03 22:58 Pulse 77 77 Resp 20 B/P (MAP) 96/56 (69) 127/68 (87) Pulse Ox 95 99 99 O2 Delivery Nasal Cannula Nasal Cannula Nasal Cannula Nasal Cannula O2 Flow Rate 2.0 2.0 2.0 2.0 2/16/22 2/16/22 2/17/22 2/17/22 23:00 23:28 03:00 04:20 Temp 98.2 97.7 98.2 97.7 Pulse 74 67 Resp 14 18 14 18 B/P (MAP) 100/61 (74) 116/69 (85) Pulse Ox 99 99 99 99 O2 Delivery Nasal Cannula Nasal Cannula Nasal Cannula Nasal Cannula O2 Flow Rate 2.0 2.0 2.0 2.0 11/01/21 11/01/21 11/01/21 11/01/21 04:50 07:15 08:00 08:31 Temp 98.0 98.0 Pulse 60 Resp 20 B/P (MAP) 111/54 (73) Pulse Ox 98 O2 Delivery Nasal Cannula Nasal Cannula Room Air Room Air O2 Flow Rate 2.0 2.0 11/01/21 11/01/21 11/01/21 11/01/21 09:01 11:08 12:02 12:32 Temp 98.5 98.5 Pulse 64 Resp 18 B/P (MAP) 131/61 (84) Pulse Ox 97 O2 Delivery Room Air Nasal Cannula Room Air Room Air O2 Flow Rate 2.0 11/01/21 11/01/21 15:15 16:07 Temp 97.8 97.8 Pulse 84 Resp 20 B/P (MAP) 107/66 (80) Pulse Ox 97 O2 Delivery Nasal Cannula Room Air O2 Flow Rate 2.0 Intake and Output 10/31/21 10/31/21 11/01/21 15:00 23:00 07:00 Intake Total 50 ml 1670 ml 900 ml Output Total 50 ml 600 ml Balance 50 ml 1620 ml 300 ml Justifications for Admission General Conditions Other justification for admit: Intractable foot pain, [id number] Other Justification Left ankle fracture ABIGAIL CHRISTIANSON DP Nov 01, 2021 17:51
[2021-11-01 19:25] VITALS: BP 105/66
[2021-11-01] MEDS: CHOLECALCIFEROL (VITAMIN D3) 5,000 UNIT CAPSULE PO SCH (20:16)
[2021-11-01] MEDS: GABAPENTIN 100 MG CAPSULE. PO SCH (20:16)
[2021-11-01] MEDS: PSYLLIUM HUSK (SUGAR FREE) 1 PKT PACKET PO SCH (20:17)
[2021-11-01] MEDS ORDERED: ACETAMINOPHEN 325 MG TABLET. PO PRN (21:00)
[2021-11-01 23:50] VITALS: BP 98/45
[2021-11-02] MEDS: HYDROcodone/APAP 5/325MG 1 TAB TABLET PO PRN ×6 (00:18→23:39)
[2021-11-02 03:15] VITALS: BP 120/59
[2021-11-02 07:30] VITALS: BP 108/61
[2021-11-02] MEDS: FOLIC ACID 1 MG TABLET. PO SCH (08:18)
[2021-11-02] MEDS: ZINC SULFATE 220 MG CAPSULE. PO SCH (08:18)
[2021-11-02] MEDS: MAGNESIUM OXIDE 400 MG TABLET PO SCH (08:18)
[2021-11-02] MEDS: GABAPENTIN 100 MG CAPSULE. PO SCH ×3 (08:18→19:29)
[2021-11-02] MEDS: SENNOSIDES/DOCUSATE 8.6/50MG TABLET. PO SCH ×2 (08:19→19:29)
[2021-11-02] MEDS: CHOLECALCIFEROL (VITAMIN D3) 5,000 UNIT CAPSULE PO SCH ×2 (08:19→19:29)
[2021-11-02] MEDS: MULTIVITAMIN with MINERAL TABLET. PO SCH (08:19)
[2021-11-02] MEDS: THIAMINE 100 MG TABLET. PO SCH (08:19)
[2021-11-02] MEDS: ENOXAPARIN 40 MG/0.4 ML SYRINGE. SQ SCH (08:20)
--- NOTE | 2021-11-02 10:31 | NUR ---
SW following. Discussed with RN, pt from home with spouse, room air, regular diet, COVID-19 negative. OT recommending home. PT not yet worked with pt. Pt had surgery on 10/31. NAN will continue to follow. Addendum: 11/02/21 at 1615 by CAROLINA [place] Pt is current with [facility]. Dr. Arce notified for home health discharge orders upon discharge. Anticipate tomorrow.
[2021-11-02 10:57] VITALS: BP 138/69
--- NOTE | 2021-11-02 11:05 | PDOC ---
[facility] PROGRESS NOTE Date of Service DOS: DATE: 11/02/21 TIME: 11:00 Chief Complaint Chief Complaint A/P: Left ankle pain -s/p ORIF July 2021. 10/31/21 - First tarsometatarsal joint fusion, deltoid ligament repair, PT tendon repair, syndesmotic joint stabilization, hardware removal Unintentional weight loss - just had repeat colonoscopy [address] Elder S/p Gastric Bypass 2003 Alcohol use disorder - no history of admission for withdrawal. Will place on CIWA post-operatively. FEN - Regular diet PPX - lovenox FULL CODE Dispo - will likely need acute rehab vs SNF as he will likely have non- weightbearing status for 6 weeks History of Present Illness History of Present Illness Mr Rees is a 66 yo male with PMHx s/p gastric bypass, s/p bilateral hip replacement, and recent complicated ankle fracture in June 2021 status post repair 07/17/2021 who comes in with persistent left ankle pain and instability. Being seen today for preoperative physical for left ankle hardware removal deltoid ligament repair spring ligament repair first tarsometatarsal joint fusion possible flexor digitorum longus transfer. He is s/p gastric bypass in 2003, bilateral hip placements in 2004. Patient is Covid vaccinated with Tivra vaccine. Status post ORIF left ankle 07/17/2021. He is lost 30 pounds since his ankle surgery he and his think due to pain. Due to his weight loss Dr. Calixto referred him to Dr. Johnson and he had a colonoscopy approximately 2 weeks ago. Seen bedside. Had some vagal response with IV insertion this morning. No recent travel or sick contacts. Other than above weight loss and left ankle persistent pain and development of flatfoot he has no other complaints. 06/2021 EKG Sinus rhythm 59 bpm, left axis deviation, first-degree AV block with ND interval 202, QTc 46, T wave inversion lead III and aVF, no ST elevation or ST depression Rapid covid 19 negative, no other labs at this time. 11/02 Patient seen and examined at bedside this morning in no apparent distress Patient says he is recovering after a revision operation for a broken left ankle sustained due to a fall caused by ETOH intake Patient says he is feeling well after his surgery Surgery was performed by Dr. Ortega on 10/31/21 and is included below: First tarsometatarsal joint fusion, Deltoid ligament repair, PT tendon repair, Syndesmotic joint stabilization, Hardware removal Discussed case with RN Chart reviewed 11/01: Hb 10.6, labs otherwise stable albumin 3.1. Feels like his pain is reasonably controlled. He is asking not to do rehabilitation at the same facility he did previously. No chest pain or shortness of breath Vitals/I&O Vitals/I&O: Vital Signs Date Time Temp Pulse Resp B/P (MAP) Pulse Ox O2 Delivery O2 Flow Rate FiO2 11/02/21 07:30 97.7 61 20 108/61 (77) 95 Room Air 97.7 11/01/21 15:15 2.0 I & O 11/01/21 11/01/21 11/02/21 15:00 23:00 07:00 Intake Total 340 ml 500 ml 240 ml Output Total 425 ml 2600 ml 850 ml Balance -85 ml -2100 ml -610 ml Physical Exam General: Alert, Oriented X3, Cooperative, No acute distress Lungs: Clear Abdomen: Normal bowel sounds, Soft, No tenderness, No hepatosplenomegaly, No masses Extremities: No clubbing, No cyanosis, No edema, Normal pulses, Other (left ankle tender and swollen) Skin: No rashes, No breakdown, No significant lesion Assessment and Plan Assessmemt and Plan Assessment Post-op day 2 from complex left ankle revision surgery performed 10/31/21 PT tendinitis Deltoid ligament insufficiency Pes planus Externally reduced syndesmotic joint Plan Wound care Pain management PT/OT DVT prophylaxis Full Code I spoke with disability counselor Dr. Chavez he would like to ambulate the patient with physical therapy for a day and then we will discharge tomorrow Comment Review of Relevant I have reviewed the following items andre (where applicable) has been applied. Medications: Current Medications Medications (Trade) Dose Ordered Sig/Obdulia Route PRN Reason Start Time Stop Time Status Last Admin Dose Admin Multivitamins (Thera M Plus) 1 tab DAILY PO 11/01/21 14:00 11/02/21 08:19 Folic Acid (Folic Acid) 1 mg DAILY PO 11/01/21 14:00 11/02/21 08:18 Thiamine Mononitrate (Vitamin B-1) 100 mg DAILY PO 11/01/21 14:00 11/02/21 08:19 Vitamin D (Vitamin D3) 5,000 unit BID PO 11/01/21 21:00 11/02/21 08:19 Zinc Sulfate (Orazinc) 220 mg DAILY PO 11/02/21 09:00 11/02/21 08:18 Magnesium Oxide (Magnesium Oxide) 400 mg DAILY PO 11/02/21 09:00 11/02/21 08:18 Gabapentin (Neurontin) 100 mg TID PO 11/01/21 21:00 11/02/21 08:18 Justifications for Admission General Conditions Other justification for admit: Intractable foot pain, [id number] Other Justification Left ankle fracture PABLO ROSA III DO Nov 02, 2021 11:05
[2021-11-02] MEDS ORDERED: BISACODYL 10 MG SUPP.RECT. PR STA (13:28)
[2021-11-02] MEDS ORDERED: POLYETHYLENE GLYCOL 3350 17 GM PACKET. PO PRN (13:30)
[2021-11-02] MEDS ORDERED: MAGNESIUM HYDROXIDE 2,400 MG/30 ML ORAL.SUSP. PO PRN (13:30)
--- NOTE | 2021-11-02 13:58 | NUR ---
Patient refused bisacodyl suppository.
[2021-11-02 14:53] VITALS: BP 120/69
[2021-11-02] MEDS: PSYLLIUM HUSK (SUGAR FREE) 1 PKT PACKET PO SCH (19:29)
[2021-11-02 19:35] VITALS: BP 108/61
[2021-11-02 23:05] VITALS: BP 115/56
[2021-11-03] MEDS: HYDROcodone/APAP 5/325MG 1 TAB TABLET PO PRN ×3 (03:47→13:05)
[2021-11-03 07:00] VITALS: BP 129/62
[2021-11-03] MEDS: MAGNESIUM OXIDE 400 MG TABLET PO SCH (08:18)
[2021-11-03] MEDS: GABAPENTIN 100 MG CAPSULE. PO SCH ×2 (08:18→13:05)
[2021-11-03] MEDS: CHOLECALCIFEROL (VITAMIN D3) 5,000 UNIT CAPSULE PO SCH (08:18)
[2021-11-03] MEDS: SENNOSIDES/DOCUSATE 8.6/50MG TABLET. PO SCH (08:18)
[2021-11-03] MEDS: ZINC SULFATE 220 MG CAPSULE. PO SCH (08:18)
[2021-11-03] MEDS: THIAMINE 100 MG TABLET. PO SCH (08:18)
[2021-11-03] MEDS: FOLIC ACID 1 MG TABLET. PO SCH (08:19)
[2021-11-03] MEDS: MULTIVITAMIN with MINERAL TABLET. PO SCH (08:19)
[2021-11-03] MEDS: ENOXAPARIN 40 MG/0.4 ML SYRINGE. SQ SCH (08:20)
[2021-11-03] MEDS ORDERED: BISACODYL 5 MG TABLET.DR. PO ONE (09:45)
--- NOTE | 2021-11-03 10:41 | PDOC ---
[facility] PROGRESS NOTE Date of Service DOS: DATE: 11/03/21 TIME: 10:37 Chief Complaint Chief Complaint A/P: Left ankle pain -s/p ORIF July 2021. 10/31/21 - First tarsometatarsal joint fusion, deltoid ligament repair, PT tendon repair, syndesmotic joint stabilization, hardware removal Unintentional weight loss - just had repeat colonoscopy [address] Elder S/p Gastric Bypass 2003 Alcohol use disorder - no history of admission for withdrawal. Will place on CIWA post-operatively. FEN - Regular diet PPX - lovenox FULL CODE Dispo - will likely need acute rehab vs SNF as he will likely have non- weightbearing status for 6 weeks History of Present Illness History of Present Illness Mr Rees is a 66 yo male with PMHx s/p gastric bypass, s/p bilateral hip replacement, and recent complicated ankle fracture in June 2021 status post repair 07/17/2021 who comes in with persistent left ankle pain and instability. Being seen today for preoperative physical for left ankle hardware removal deltoid ligament repair spring ligament repair first tarsometatarsal joint fusion possible flexor digitorum longus transfer. He is s/p gastric bypass in 2003, bilateral hip placements in 2004. Patient is Covid vaccinated with Spazzles vaccine. Status post ORIF left ankle 07/17/2021. He is lost 30 pounds since his ankle surgery he and his think due to pain. Due to his weight loss Dr. Calixto referred him to Dr. Johnson and he had a colonoscopy approximately 2 weeks ago. Seen bedside. Had some vagal response with IV insertion this morning. No recent travel or sick contacts. Other than above weight loss and left ankle persistent pain and development of flatfoot he has no other complaints. 06/2021 EKG Sinus rhythm 59 bpm, left axis deviation, first-degree AV block with VA interval 202, QTc 46, T wave inversion lead III and aVF, no ST elevation or ST depression Rapid covid 19 negative, no other labs at this time. 11/03 Post-Op Day 3 Patient seen and examined at bedside this morning in no apparent distress Patient still recovering after revision operation for a broken left ankle Patient says he is feeling well after his surgery Patient complains of constipation but refused suppository (per RN note) last night (11/02), prefers a Dulcolax pill - Agreed to provide patient Dulcolax Plan to discharge this afternoon after bowel movement Discussed case with RN Chart reviewed 11/02 Patient seen and examined at bedside this morning in no apparent distress Patient says he is recovering after a revision operation for a broken left ankle sustained due to a fall caused by ETOH intake Patient says he is feeling well after his surgery Surgery was performed by Dr. Ortega on 10/31/21 and is included below: First tarsometatarsal joint fusion, Deltoid ligament repair, PT tendon repair, Syndesmotic joint stabilization, Hardware removal Discussed case with RN Chart reviewed 11/01: Hb 10.6, labs otherwise stable albumin 3.1. Feels like his pain is reasonably controlled. He is asking not to do rehabilitation at the same facility he did previously. No chest pain or shortness of breath Vitals/I&O Vitals/I&O: Vital Signs Date Time Temp Pulse Resp B/P (MAP) Pulse Ox O2 Delivery O2 Flow Rate FiO2 11/03/21 09:06 Room Air 11/03/21 08:05 2.0 11/03/21 07:00 98.2 64 17 129/62 (84) 97 98.2 I & O 11/02/21 11/02/21 11/03/21 15:00 23:00 07:00 Intake Total 450 ml Output Total 1000 ml Balance -1000 ml 450 ml Physical Exam General: Alert, Oriented X3, Cooperative, No acute distress Lungs: Clear Abdomen: Normal bowel sounds, Soft, No tenderness, No hepatosplenomegaly, No masses Extremities: No clubbing, No cyanosis, No edema, Normal pulses, Other (left ankle tender and swollen) Skin: No rashes, No breakdown, No significant lesion Assessment and Plan Assessmemt and Plan Assessment Post-op day 3 from complex left ankle revision surgery performed 10/31/21 PT tendinitis Deltoid ligament insufficiency Pes planus Externally reduced syndesmotic joint Constipation Plan Gave Dulcolax for constipation as patient would like to have a BM before discharge Wound care Pain management PT/OT DVT prophylaxis Full Code Spoke with confectionery drops machine operator Dr. Chavez - Plan to ambulate the patient with PT and then discharge this afternoon Comment Review of Relevant I have reviewed the following items andre (where applicable) has been applied. Medications: Current Medications Medications (Trade) Dose Ordered Sig/Obdulia Route PRN Reason Start Time Stop Time Status Last Admin Dose Admin Polyethylene Glycol (miraLAX PACKET) 17 gm PRN DAILY PRN PO CONSTIPATION - 2ND CHOICE 11/02/21 13:30 11/02/21 16:20 Bisacodyl (Dulcolax Tab) 10 mg 1X ONCE PO 11/03/21 09:45 11/03/21 09:46 DC 11/03/21 10:10 Justifications for Admission General Conditions Other justification for admit: Intractable foot pain, [id number] Other Justification Left ankle fracture PABLO ROSA III DO Nov 03, 2021 10:41
[2021-11-03] MEDS ORDERED: HYDR-2761 PO (10:57)
[2021-11-03] MEDS ORDERED: GABA-585 PO (10:57)
[2021-11-03 11:00] VITALS: BP 108/59
--- NOTE | 2021-11-03 13:55 | NUR ---
Patient discharge home with self care today,via wheelchair, accompanied by aid. Patient is stable, IV removed, and discharge paperwork given to patient. Patient verbalized understanding of followup and discharge instruction. Patient have followup appointment with Dr. Chavez on November 13 at office.
--- NOTE | 2021-11-03 14:52 | DS ---
DATE OF DISCHARGE: 11/03/2021 ADMISSION DIAGNOSIS: Left ankle fracture. DISCHARGE DIAGNOSES: Postoperative day #3, first transmetatarsal joint fusion, deltoid ligament repair, PT tendon repair, syndesmotic joint stabilization and hardware removal. HOSPITAL COURSE: The patient is a pleasant middle-aged male who fell and fractured his ankle. We consulted Dr. Chavez. He was taken to Surgery for the above procedure. Today, I saw and examined him. He is at his baseline, wanted to go home. We plan to discharge with close outpatient followup with Dr. Chavez. DISPOSITION: Home. ACTIVITY: As tolerated. DIET: Low-sodium. DISCHARGE MEDICATIONS: Please see the MRAD. Gabapentin 100 t.i.d., hydrocodone 5 mg q. 6 hours, p.r.n. Tylenol, vitamin D, magnesium citrate 100 b.i.d., vitamins, and zinc 50 a day. TOTAL TIME: Thirty-two minutes. LEVI/WALTER/SOM DR: Gely TID: [id number]
== END 2021-11-03 14:26 | disposition home or self-care (01) | DRG 494 ==
LOC: OPSVCIP 07:29 → EDSTATUS 09:00 → 4 NORTH 16:40
PROVIDERS: ADMIT Internal Medicine; ATTEND Internal Medicine
PROC: 0SGL0JZ Fusion of Left Tarsometatarsal Joint with Synthetic Substitute, Open Approach (ICD-10-PCS; 2021-10-31)
PROC: 0MQR0ZZ Repair Left Ankle Bursa and Ligament, Open Approach (ICD-10-PCS; 2021-10-31)
PROC: 0SPG04Z Removal of Internal Fixation Device from Left Ankle Joint, Open Approach (ICD-10-PCS; principal; 2021-10-31 09:00)
DX: S82.842A Displaced bimalleolar fracture of left lower leg, initial encounter for closed fracture (principal); F10.10 Alcohol abuse, uncomplicated; I44.0 Atrioventricular block, first degree; K59.00 Constipation, unspecified; M21.179 Varus deformity, not elsewhere classified, unspecified ankle; M21.40 Flat foot [pes planus] (acquired), unspecified foot; Z82.49 Family history of ischemic heart disease and other diseases of the circulatory system; Z96.643 Presence of artificial hip joint, bilateral; Z98.84 Bariatric surgery status; M77.9 Enthesopathy, unspecified; W18.39XA Other fall on same level, initial encounter; Y93.89 Activity, other specified; Y92.89 Other specified places as the place of occurrence of the external cause; Y99.8 Other external cause status
CPT/HCPCS: 36415; 73630; 76000; 80053; 85025; A4209; A4930; A6223; A6253; A6402; A6449; A6450; A6455; C1713; C1769; C1776; J0690; J0780; J1100; J1170; J1650; J2270; J2370; J2405; J2704; J3010; J3490; J7120; 97530-GP; 97535-GO; G0378

== ENCOUNTER 2022-01-16 07:45 | Day surgery (SDC) | payer MEDICARE ==
[~2022-01-16] VITALS: Ht 177.8 cm; Wt 81.8 kg
[~2022-01-16 07:45] MED LIST changes: +CALC500T30 PO; +CYAN500T7 PO; +FERR325T14 PO; +GABA-585 PO; +HYDROmorphone 2 MG/ML INJ. IVP PRN; +MORPHINE SULFATE 2 MG/ML INJ. IVP PRN; +PROCHLORPERAZINE 10 MG/2 ML VIAL. IVP PRN
[2022-01-16] MEDS ORDERED: ceFAZolin 2GM PREMIX 2 GM/50 ML BAG IV ONE (08:00)
[2022-01-16 08:12] VITALS: BP 108/68
--- NOTE | 2022-01-16 08:52 | SSS ---
DATE OF SERVICE: 01/16/2022 ADMIT DATE: 01/16/2022 CHIEF COMPLAINT: Hammertoe preoperative evaluation. HISTORY OF PRESENT ILLNESS: The patient is a pleasant 66-year-old male who is going for surgery today for a hammertoe. We have been requested for preoperative evaluation. PAST MEDICAL HISTORY: Benign. ALLERGIES: None. FAMILY HISTORY: Diabetes. SOCIAL HISTORY: He does not drink, smoke or take drugs. He is . MEDICATIONS: Reviewed, please refer to the MRAD. He basically on [id number] supplements including iron, Tylenol, calcium, magnesium, zinc, protein supplements, vitamin B12, vitamin D, and multiple vitamins. REVIEW OF SYSTEMS: GENERAL: No history of weight change, weakness or fevers. SKIN: No bruising, hair changes or rashes. EYES: No blurred, double or loss of vision. NOSE AND THROAT: No history of nosebleeds, hoarseness or sore throat. HEART: No history of palpitations, chest pain or shortness of breath on exertion. LUNGS: Denies cough, hemoptysis, wheezing or shortness of breath. GASTROINTESTINAL: Denies changes in appetite, nausea, vomiting, diarrhea or constipation. GENITOURINARY: No history of frequency, urgency, hesitancy or nocturia. NEUROLOGIC: Denies history of numbness, tingling, tremor or weakness. PSYCHIATRIC: No history of panic, anxiety or depression. ENDOCRINE: No history of heat or cold intolerance, polyuria or polydipsia. EXTREMITIES: Denies muscle weakness, joint pain, pain on walking or stiffness. PHYSICAL EXAMINATION: VITALS: Within normal limits and are stable. GENERAL: No apparent distress. Alert and oriented. HEENT: Normocephalic atraumatic, external auditory canals are patent. EYES: Extraocular muscles are intact, pupils are equally round and reactive to light and accommodation. MUSCULOSKELETAL: Well developed, well nourished, good range of motion. ENDOCRINE: No thyromegaly was palpated. LYMPHATICS: No cervical chain or axillary nodes were noted. HEMATOPOIETIC: No bruising. NECK: Supple, no JVD, no thyromegaly was noted. LUNGS: Clear to auscultation in all lung lombardo without rhonchi or wheezing. HEART: RRR, S1, S2 present. Peripheral pulses intact, no obvious murmurs were noted. ABDOMEN: Soft, nontender. Positive bowel sounds no organomegaly, normal bowel sounds. EXTREMITIES: Without any cyanosis, clubbing, or edema. Pedal pulses intact, Homans sign is negative. NEUROLOGIC: Normal speech, normal tone. A and O x 3, moves all extremities, no obvious focal deficits. PSYCHIATRIC: Normal affect, normal mood. Stable. SKIN: No ulcerations or rashes, good skin turgor, no jaundice. VASCULAR: Good capillary refill, neurovascular bundle appears to be intact. ASSESSMENT AND PLAN: Jeny in a middle-aged 66-year-old male who seems to be a very clinically stable, has a very little past medical history and is only on [id number] medications. He seems at low for intraoperative or postoperative complications. He is cleared for surgery. [facility] [place]: LEVI/michael TID: [id number]
[2022-01-16] MEDS ORDERED: LIDOCAINE 2% PF 5 ML VIAL. ONE (09:26)
[2022-01-16] MEDS ORDERED: fentaNYL PF VIAL 100 MCG/2 ML VIAL ONE ×2 (09:26→11:48)
[2022-01-16] MEDS ORDERED: SEVOFLURANE 61 TO 120 MINUTES. IH ONE (09:26)
[2022-01-16] MEDS ORDERED: ONDANSETRON PF 4 MG/2 ML VIAL. ONE (09:26)
[2022-01-16] MEDS ORDERED: PROPOFOL 10 MG/ML (20ML) VIAL. IV ONE (09:26)
[2022-01-16] MEDS ORDERED: DEXAMETHASONE SOD PHOS 4 MG/ML VIAL ONE (09:26)
[2022-01-16] MEDS ORDERED: BUPIVACAINE MPF 0.25% 30 ML VIAL. ONE (09:28)
[2022-01-16] MEDS ORDERED: ePHEDrine PF IN SALINE 50 MG/10 ML SYRINGE. IV ONE (09:58)
[2022-01-16] MEDS ORDERED: BUPIVACAINE MPF 0.25% 30 ML VIAL. INJ ONE (10:03)
--- NOTE | 2022-01-16 11:36 | PDOC4 ---
OPERATIVE NOTE Date: Date: January 16, 2022 Pre-Op Diagnosis: Left bunion, second hammertoe contracture, semirigid Post-Op Diagnosis: Same as above Procedure Performed: Left distal bunion osteotomy, second PIPJ arthrodesis Surgeon: Abigail Christianson DPM Anesthesia Type: General Blood Loss: 10 cc Specimans Obtained: None Findings: Postoperatively, reduced first intermetatarsal angle, restored fibular sesamoid position, adequate first MTPJ congruity. Improved apposition at the second PIPJ. Complications: None Operative Note: Under mild sedation, patient was brought into the operating room and placed on operating table in a supine position. A formal timeout confirming patient's identity, procedure, procedure site was carried out. Following IV prophylactic antibiotics, general anesthesia, a well-padded left thigh tourniquet was placed on the left lower extremity. Following alcohol skin prep, 10cc of 0.25% Marcaine plain was infiltrated into the left distal forefoot in a Sánchez block fashion and a second digital block fashion. The left lower extremity was then scrubbed, prepped and draped using aseptic techniques. The left lower extremity was exsanguinated and then the tourniquet was inflated to 250 mill mercury. Then the attention was directed to left distal forefoot. A dorsal linear incision was made across the first MTPJ. The incision was carried deep with combination of sharp and blunt dissection with care to protect and retract all the neurovascular bundles. Straight linear capsulotomy was performed medial to the EHL. The capsule was carefully elevated off the medial first metatarsal head and also the base of the proximal hallux. Care was taken not to over dissect the soft tissue envelope to avoid AVN. After the medial first metata rsal head was fully visualized, the attention was directed to the dorsal lateral first MTPJ. Metzenbaum scissors was used to bluntly dissect and review the lateral capsule of the sesamoid complex. A #15 blade was used to release the fibular sesamoid collateral ligament. The fibular sesamoid was further freed from the surrounding soft tissue and was noted to reduce under the first metatarsal head. Then the attention was directed to the medial eminence. The medial eminence was minimally resected to create a flat osseous plane where a 0.052'' K wire was used as an axis guide aiming towards fifth metatarsal head. Then a modified distal Brody osteotomy was carried out around the first metatarsal head. The distal fragment was easily translated laterally where the fibular sesamoid was reduced under the metatarsal head, the first MTPJ congruenty was restored. Then a K wire was used to temporarily stabilize the distal fragment. Then using standard AO technique, a partially-threaded 3.0 mm cannulated screw was placed from dorsal proximal to distal plantar aspect of the first metatarsal head. The hardware was noted adequate in length, position without any violation to the first MTPJ. Then a sagittal saw was used to remove the remaining medial eminence without steaking the head. Then the surgical site was irrigated with copious saline solution. The medial capsule was repaired with 3-0 Vicryl with the forefoot loaded and hallux minimally adducted across the MTPJ. The skin was closed with 4-0 Monocryl and 4-0 nylon. Then the attention was directed to the dorsal second PIPJ. two semielliptical skin incisions were carried out at the level of dorsal second PIPJ. The incision was carried deep with a pair of Metzenbaum's scissors with care to protect and retract all the neurovascular bundles. At this time, the dorsal EDL was encountered and was traversed at the level of PIPJ. The extensor tendon was elevated off the bone and capsule. A transverse capsulotomy and collateral ligament release were performed over the PIPJ to expose the head of the proximal second phalanx and the base of the middle phalanx. Then a sagittal saw was used to resect out the head of the second proximal phalanx and the base of the middle phalanx. The surgical site was irrigated with copious saline solution. The opposing surface of the PIPJ was fenestrated and opposed with a retrograde underwire for 2.0 mm fully threaded screw traversing the PIPJ and DIPJ. Then a 2.0 mm fully threaded screw was placed from distal to proximal over the underwir e traversing the PIPJ. Adequate hardware position, purchase and alignment were confirmed with intraoperative x-ray. The guidewire was removed. Then the EDL was repaired with 3-0 Vicryl. Then the incision was repaired with 4-0 nylon. At this time, tourniquet was deflated and adequate digital perfusion was noted to digits 1 through 5, left. Postoperative anesthesia consisted of 10 cc of 0.25% Marcaine plain was infiltrated in a Sánchez block fashion and a second digital block fashion across the left forefoot. Then the surgical site was dressed with Xeroform, gauze, ABD, Compa. Patient tolerated procedure and anesthesia well with neurovascular status intact and vital signs stable. Patient was then transferred to PACU for continuous recovery. Pending left foot 3 view x-ray. Patient to be nonweightbearing while protected in the E boot. ABIGAIL CHRISTIANSON DPM January 16, 2022 11:36
[2022-01-16] MEDS ORDERED: oxyCODONE/APAP 5/325 1 TAB TABLET PO ONE (11:45)
[2022-01-16] MEDS ORDERED: GABAPENTIN 100 MG CAPSULE. PO ONE (11:45)
[2022-01-16] MEDS ORDERED: ACETAMINOPHEN 325 MG TABLET. PO ONE (11:45)
[2022-01-16] MEDS: fentaNYL PF VIAL 100 MCG/2 ML VIAL IVP PRN ×2 (11:49→12:04)
[2022-01-16 12:17] VITALS: BP 127/67
--- NOTE | 2022-01-16 16:31 | RAD ---
EXAM: XR FOOT_LEFT 3 VIEWS 01/16/2022 11:38 AM CLINICAL INDICATION: Postop left COMPARISON: Left foot radiograph 01/07/2022 TECHNIQUE: AP, oblique, and lateral views of the left foot FINDINGS: There are new surgical changes of great toe metatarsal head osteotomy and hammertoe deform ity correction of the second PIP joint. Hardware appears intact. There is an unchanged plate and scre w fixation device and interfragmentary screw traversing the first TMT joint. Incompletely evaluated h ardware in the distal ankle. The bones are diffusely demineralized. There is mild degenerative joint disease at the first and seco nd MTP joints. Mild diffuse soft tissue swelling. Vascular calcifications are seen. IMPRESSION: 1. New surgical changes of great toe metatarsal head osteotomy and second hammertoe deformity correct ion. 2. Unchanged first TMT joint arthrodesis. 3. No acute abnormality. Electronically signed by: Daja Delvalle MD (01/16/2022 4:28 PM) [id number]
== END 2022-01-16 12:50 | disposition home or self-care (01) ==
LOC: SURG 07:45
PROVIDERS: ATTEND Podiatrist
DX: M20.42 Other hammer toe(s) (acquired), left foot (principal); G47.30 Sleep apnea, unspecified; Z87.891 Personal history of nicotine dependence; Z79.899 Other long term (current) drug therapy; Z98.890 Other specified postprocedural states; Z72.89 Other problems related to lifestyle
CPT/HCPCS: 28285; 28296; 73630; A4930; A6253; A6402; A6449; C1713; C1769; J0690; J1100; J2405; J2704; J3010; J3490; A4322; A4657; A6443